=== PATIENT | female | born 1940 ===

== ENCOUNTER → 2017-03-21 | Outpatient (CLI) | payer MEDICARE, OTHER ==
[~2017-03-21] MED LIST: "\\\"PREP SPRAY\\\"-TIN4 OZ"; BENADRYL25 MG PO; BETAPACE (GENER80 MG PO; CALCIUM 1,0001 EACH PO; CATAPRES0.3 MG PO; CELEXA20 MG PO; COLACE100 MG PO; CORDARONE,PACE200 MG PO; COUMADIN ** IA5 MG PO; COUMADIN **IA2.5 MG PO; DULCOLAX10 MG R; FLORASTOR250 MG PO; FOSAMAX70 MG PO; HUMIBID LA (MU600 MG PO; KEPPRA500 MG PO; LEVAQUIN500 MG PO; LEXAPRO20 MG PO; LOPRESSOR25 MG PO; LOTENSIN40 MG PO; LOVENOX 6060 MG/0.6 SUB-Q; MILK OF MA400 MG/5 M PO; NORCO 5-325 TA1 EACH PO; NORVASC5 MG PO; NYSTATIN100000 UNI PO; PROAIR RESPICL90 MCG INH; SURFAK240 MG PO; THERA-VITE W/ B1 TAB PO; TYLENOL EXTRA500 MG PO; ZITHROMAX250 MG PO
== END ==
LOC: LCNC 16:12
DX: R53.82 Chronic fatigue, unspecified (principal)

== ENCOUNTER 2017-06-06 18:40 | Inpatient (IN) | payer MEDICARE, OTHER ==
[~2017-06-06] VITALS: Ht 157.5 cm; Wt 58.6 kg
--- NOTE | ~2017-06-06 | CON ---
PATIENT'S NAME: JUNG LINARES [facility] AGE: 77 Y [address] ROOM: [address] [place], [place] [address] LOCATION: G3N ADMIT DATE: 06/06/2017 Consultation DISCHARGE DATE: FAMILY PHYSICIAN: PHYSICIAN, UNKNOWN ATTENDING PHYSICIAN: LAMBERTO AVENDAÑO V REFERRING PHYSICIAN: SHELLIE RAYO MD HISTORY OF PRESENT ILLNESS: Ms. Linares is a 77-year-old elderly frail female with advanced dementia, who fell at home (day before yesterday) and sustained a right proximal femur fracture. History is obtained via the patient's (who is her primary caregiver) due to the fact that the patient has advanced dementia and is, therefore, not capable of providing history of any sort. At baseline, the patient has never complained of right hip pain. The patient is well known to me based upon the fact that I replaced both of her knees several years ago. I also provided followup care after she underwent open reduction and internal fixation of a left hip fracture in [place] year before last. She has had ongoing left hip pain subsequent to her left hip fracture treatment. The patient is nonambulatory (due to her dementia, frailty, left hip pain, and decreased strength). Her relates that she has been in a state of deteriorating health over the past year, where as they have previously spent wheat in [place], they did not do so this year. The patient's has been providing 24-hour care to the patient in their home residence. He assists her with virtually all transfers. She spends most of her day in bed or in a wheelchair. He states that she has been sleeping 12 to 14 hours per day. Day before yesterday, she stood up without assistance and attempted to transfer to her wheelchair and fell. She was unable to bear weight because of right hip pain. She denies pain elsewhere as a result of the incident. The patient's states that her appetite has been poor and that she has been manifesting increased lethargy and compromised strength over the past several months. He estimates that she has lost 10 pounds since [place]. He states that she has been in her baseline cognitive state subsequent to the injury. That is, there has been no deterioration in her mental status since the injury day before yesterday. MEDICATIONS: On admission; 1. Norvasc. 2. Lotensin. 3. Betapace. 4. Multivitamin. 5. Lexapro. PATIENT'S NAME: JUNG LINARES [facility] AGE: 77 Y [address] ROOM: [id number] [place], [place] [address] LOCATION: [facility] ADMIT DATE: 06/06/2017 Consultation DISCHARGE DATE: FAMILY PHYSICIAN: PHYSICIAN, UNKNOWN ATTENDING PHYSICIAN: LAMBERTO AVENDAÑO V 6. Catapres. 7. Lopressor. 8. Coumadin. 9. Benadryl. 10. Alendronate sodium. 11. Docusate calcium. 12. Benadryl. ALLERGIES: DILAUDID. PAST SURGICAL HISTORY: Bilateral total knee replacements, and open reduction and internal fixation of left hip. REVIEW OF HISTORY: No history of diabetes mellitus. Her states that she never complains of pain in either knee. She has a moderate amount of ongoing left hip pain. He places ice on her left hip every night. ACTIVE MEDICAL PROBLEMS: Atrial fibrillation, dementia, and osteopenia. PHYSICAL EXAMINATION: GENERAL: Frail, slender, elderly female, who is in no distress. VITAL SIGNS: Respiratory rate is 18 and nonlabored. NEUROLOGIC: She opens her eyes to command. She moves all 4 extremities to command. She is nonverbal in the preoperative holding area. MUSCULOSKELETAL: Left hip range of motion is severely limited and moderately painful. There is severe right hip pain with range of motion. There is tenderness at the right greater trochanter. There is a well-healed lateral scar at the left hip. There is no calf swelling or tenderness in either lower extremity. There are no active skin lesions over the right hip. There is no pain with gentle passive range of motion of both shoulders, both elbows, and both wrists. She is able to partially dorsiflex and plantarflex both ankles and both great toes against gravity, but she is noncooperative with more extensive strength testing of her legs. There is good capillary refill to all toes in the right foot. There is no swelling or tenderness at either knee. RADIOGRAPHS: AP pelvis as well as 2 oblique views of the right hip from June 06 demonstrate a gamma-nail construct at the left hip. There is moderate left hip joint space narrowing. There is a subtrochanteric fracture of the right hip. The proximal femoral shaft overlaps the trochanteric region, but this appears to be a subtrochanteric fracture. There is moderate superomedial PATIENT'S NAME: JUNG LINARES [facility] AGE: 77 Y [address] ROOM: [id number] [place], [place] [address] LOCATION: [facility] ADMIT DATE: 06/06/2017 Consultation DISCHARGE DATE: FAMILY PHYSICIAN: PHYSICIAN, UNKNOWN ATTENDING PHYSICIAN: LAMBERTO AVENDAÑO V joint space narrowing at both hips. IMPRESSION: Bilateral hip degenerative joint disease. Healed left proximal femur fracture with retained hardware, left proximal femur. Right hip subtrochanteric fracture. Osteopenia. Dementia. Baseline medical frailty with history of deteriorating physiologic status over the past year. PLAN: I have discussed the etiology and natural history of this condition. I have discussed operative and nonoperative options. I have recommended open reduction and internal fixation with an intramedullary device. I have explained to the patient's and daughter that she could conceivably have a more complex fracture of the proximal femur that was not evident on the plain radiographs (due to the fact that the patient was not comfortable enough to obtain optimal projections). Our plan will be to proceed with open reduction and internal fixation. I have reviewed technical aspects of surgery as well as risks and limitations thereof as well as potential adverse sequelae of the injury itself. I have specifically discussed the potential for infection, deep venous thrombosis, pulmonary embolism, mortality, malunion, nonunion, neurovascular complications, and blood transfusion risks. I have emphasized (and the patient's and daughter acknowledge) that her baseline compromised physical and cognitive status are likely to be challenged by this lesion and this carries a compromised prognosis. However, they wish to do everything possible to keep the patient as comfortable as possible. This would include stabilization of her fracture, so that she can be mobilized. All their questions and concerns have been answered to their satisfaction. Coumadin has been held since admission and she has been medically cleared to proceed with surgery today. Coumadin will be reinitiated in the recovery room and this will serve as DVT prophylaxis. MD VIDYA JIMENEZ/gaston PATIENT'S NAME: JUNG LINARES [facility] AGE: 77 Y [address] ROOM: [address] [address] LOCATION: [facility] ADMIT DATE: 06/06/2017 Consultation DISCHARGE DATE: FAMILY PHYSICIAN: PHYSICIAN, UNKNOWN ATTENDING PHYSICIAN: LAMBERTO AVENDAÑO V /[id number] d: 06/08/[id number] t: 06/11/17 1744, CONSULTATION REPORT
--- NOTE | ~2017-06-06 | HP ---
PATIENT'S NAME: JUNG LINARES [facility] AGE: 77 Y [address] ROOM: [address] [address] LOCATION: [facility] ADMIT DATE: 06/06/2017 History & Physical DISCHARGE DATE: FAMILY PHYSICIAN: PHYSICIAN, UNKNOWN ATTENDING PHYSICIAN: LAMBERTO AVENDAÑO V DATE OF SERVICE: CHIEF COMPLAINT: Mechanical fall/hip fracture. HISTORY OF PRESENT ILLNESS: The patient is a 77-year-old female, who has sustained a witnessed mechanical fall earlier today. Most of the history is provided by the patient's as she is quite sleepy from the opioids that she has received in the ER. Apparently, she got up and missed her wheelchair, fell, and at this point has a right hip fracture. Orthopedics is aware about the patient, and operative intervention is planned for 2 days from today. The patient does have a past medical history of atrial fibrillation, on sotalol and Coumadin. Her and her , however, deny any history of palpitations, chest pain, or shortness of breath. The does, however, endorse a recent history of complete lack of energy, apathy for daily activities as well as prolonged immobility, and sleeping for 12 hours a day. It is unclear if the patient has had a workup for this issue with her PCP. REVIEW OF SYSTEMS: All systems have been reviewed and are negative aside from pertinent positives mentioned in the HPI. PAST MEDICAL HISTORY: 1. Atrial fibrillation, on rhythm control, on anticoagulation. 2. Essential hypertension. 3. Bilateral knee arthroplasty. 4. Carries a history of depression. CURRENT MEDICATIONS: 1. Clonidine. 2. Sotalol. 3. Coumadin. 4. Citalopram. 5. Metoprolol. 6. Alendronate. 7. Multivitamin. PATIENT'S NAME: JUNG LINARES [facility] AGE: 77 Y [address] ROOM: [address] [address] LOCATION: [facility] ADMIT DATE: 06/06/2017 History & Physical DISCHARGE DATE: FAMILY PHYSICIAN: PHYSICIAN, UNKNOWN ATTENDING PHYSICIAN: LAMBERTO AVENDAÑO V SOCIAL HISTORY: Negative for any history of ongoing toxic habits. FAMILY HISTORY: Reviewed and noncontributory due to her advanced age. PHYSICAL EXAMINATION: VITAL SIGNS: Blood pressure 163/88, heart rate is 67, temperature 98.7, respirations of 14, saturating 99% on 2 L nasal cannula. GENERAL: Appears as an emancipated elderly female, quite sleepy, in no acute distress. NEUROLOGIC: Nonfocal. EYES: Show pupils are 2 mm and reactive to light. LYMPHATIC: Shows no cervical lymphadenopathy. ENDOCRINE: Shows no thyromegaly. LUNGS: Clear to auscultation. HEART: Rate is regular with 2/6 systolic murmur consistent with mitral regurgitation. GI: Abdomen is soft, nontender, nondistended. : No costovertebral angle tenderness. VASCULAR: 2+ pedal pulses. MUSCULOSKELETAL: Deferred. PSYCHIATRIC: Shows psychomotor retardation, likely related to opioids that the patient received in the ER. SKIN: Warm and dry. LABORATORY DATA: Review of the studies from the ER significant for INR of 2. Negative urinalysis. Unremarkable CBC and an unremarkable basic metabolic profile. EKG shows sinus rhythm in the 60s without any significant ST-T abnormalities, no QT prolongation. ASSESSMENT AND PLAN: This is a 77-year-old female with right hip fracture. Individual problems to be addressed as follows: 1. Preoperative optimization. Aside from correcting her INR, at this point, the patient does not require any further perioperative optimization. She is, however, at a risk for postoperative complications, just due to her poor nutritional status. We will check her prealbumin and request a Nutrition consult. Protein-calorie malnutrition is a possibility here. 2. Iatrogenic coagulopathy due to Coumadin. At this point, the surgery is not planned for another 36 hours to my understanding. We will monitor her INR tomorrow. We will hold off on her Coumadin. We will provide her vitamin K and/or FFP if needed. 3. Essential hypertension. This is adequately controlled, and we will PATIENT'S NAME: JUNG LINARES [facility] AGE: 77 Y [address] ROOM: [address] [address] LOCATION: [facility] ADMIT DATE: 06/06/2017 History & Physical DISCHARGE DATE: FAMILY PHYSICIAN: PHYSICIAN, UNKNOWN ATTENDING PHYSICIAN: LAMBERTO AVENDAÑO V continue benazepril and sotalol. 4. Depression. The patient is already on Celexa. We will check the TSH to make sure there is not a medical contribution to her psychiatric condition. 5. Pain control. The patient has adverse reaction to Dilaudid before, and we will discuss pain control with Orthopedics. 6. Deep venous thrombosis prophylaxis. At this point, the patient's INR is therapeutic and additional DVT prophylaxis is not indicated. 7. Additional management will depend on clinical course. Time dedicated to the patient's encounter is 35 minutes. MD ZACHARY OLIVARES/gaston /[id number] D: [id number] T: [id number] HISTORY & PHYSICAL
--- NOTE | ~2017-06-06 | ER ---
PATIENT'S NAME: JUNG LINARES [facility] AGE: 77 Y [address] ROOM: [place] [address] LOCATION: [facility] ADMIT DATE: 06/06/2017 ER/Outpatient Report DISCHARGE DATE: FAMILY PHYSICIAN: PHYSICIAN, UNKNOWN ATTENDING PHYSICIAN: LAMBERTO AVENDAÑO V CHIEF COMPLAINT: Right thigh pain. HISTORY OF PRESENT ILLNESS: Ms Linares was at home with her when she was transferring from her walker to her wheelchair when she collapsed and fell. The had been helping her, but turned to get the wheelchair, when she fell. It was not witnessed exactly, but does not appear as though she had any loss of consciousness or striking of her head. The was able to help her into bed, but she could not bear any weight on the leg. It is sharp pain. Pain is rated as severe. No interventions have been tried other than fentanyl by EMS. She did arrive by ambulance for further evaluation and treatment. History of left- sided hip fracture and bilateral knee replacements. Local physician is at the [facility]. PAST MEDICAL HISTORY: Documented on the record and reviewed by me. SOCIAL HISTORY: Documented on the record and reviewed by me. MEDICATIONS: Documented on the record and reviewed by me. ALLERGIES: DOCUMENTED ON THE RECORD AND REVIEWED BY ME. REVIEW OF SYSTEMS: All systems were reviewed and negative except as noted in the HPI. PHYSICAL EXAMINATION: VITAL SIGNS: Blood pressure 154/97, pulse 58, respiratory rate 16, temperature 96.3, SpO2 is 91% on room air. Pain is rated 4/10. GENERAL: Age-appropriate female, in obvious pain. No respiratory distress, recumbent on the exam table. NEUROLOGIC: Awake and alert. GCS is 14. Slightly confused on date. No abnormalities or asymmetry on exam. HEENT: Normocephalic, atraumatic. Eyes are PERRL. Oropharynx is clear. NECK: Supple. Trachea is midline. PATIENT'S NAME: JUNG LINARES [facility] AGE: 77 Y [address] ROOM: [address] [address] LOCATION: [facility] ADMIT DATE: 06/06/2017 ER/Outpatient Report DISCHARGE DATE: FAMILY PHYSICIAN: PHYSICIAN, UNKNOWN ATTENDING PHYSICIAN: LAMBERTO AVENDAÑO V CHEST: Heart is regular rate and rhythm with no murmurs. LUNGS: Clear to auscultation bilaterally with no rhonchi, wheezes, or rales. ABDOMEN: Soft, nontender, and nondistended. No rebound or guarding. BACK: Normal to inspection and palpation. EXTREMITIES: Tenderness at the right hip region. The hip is externally rotated and shortened. The other extremities are unremarkable. All extremities are neurovascularly intact otherwise. SKIN: Appears to be grossly intact. LABORATORY DATA AND X-RAYS: Plain film of the pelvis reveals a subtrochanteric fracture without evidence of involvement of the femoral neck. CMS is notable for no significant abnormalities. CBC with no appreciable abnormalities. INR is 2.0. Urinalysis with no evidence of infection. EKG with marked baseline artifact, appears to be sinus rhythm, with otherwise normal intervals and axis. CT of the head and C-spine were unremarkable per Radiology. IMPRESSION: Right-sided hip fracture, status post fall. EMERGENCY DEPARTMENT COURSE: The patient was seen and evaluated as above. She was given fentanyl for pain management. Plain films as above. The etiology of fall appears to be mechanical in nature or spontaneous fracture. The patient is allergic to hydromorphone and thus she was not given that in the emergency department. I discussed the case with Dr. Robb, orthopedic surgeon, of the patient's choice and he has agreed to evaluate the patient for further evaluation in the hospital. We will admit to hospitalist for the patient's other medical comorbidities and age for symptom management. All questions were answered and the patient was admitted in stable condition. MD BAKARI QUEEN/gaston /[id number] d: 06/07/17608 t: 06/10/17 1234, OUTPATIENT REPORT
--- NOTE | ~2017-06-06 | CON ---
PATIENT'S NAME: JUNG LINARES [facility] AGE: 77 Y [address] ROOM: [id number] [place], [place] [address] LOCATION: [facility] ADMIT DATE: 06/06/2017 Consultation DISCHARGE DATE: FAMILY PHYSICIAN: PHYSICIAN, UNKNOWN ATTENDING PHYSICIAN: LAMBERTO AVENDAÑO V REFERRING PHYSICIAN: SHELLIE RAYO MD REFERRING PHYSICIAN: Lamberto Avendaño MD REASON FOR CONSULT: Paroxysmal atrial fibrillation. HISTORY OF PRESENT ILLNESS: This is a very pleasant, 77-year-old female, well known to Dr. Forbes with history of paroxysmal atrial fibrillation on long-term anticoagulation and high-risk medications. She also has essential hypertension and nocturnal hypoxia as well as aortic valve sclerosis. She has a history of basal ganglia and thalamic lacunar infarct per CT 01/02/2016 as well with history of DVT. On 06/06/2017, she was admitted after a fall where she sustained right hip fracture. She was standing with her walker, getting ready to sit in a wheelchair and had a fall that was unwitnessed. She does not recall if she felt lightheaded or dizzy. She has not had complaints of lightheadedness or dizziness recently. There has been no report of exertional chest pain or shortness of breath. No orthopnea, PND, or pedal edema. On admission, her EKG showed that she was in a regular sinus rhythm. On 06/08/2017, she underwent an open reduction internal fixation of the right hip with intertrochanteric fracture with IM gamma nail placed. She is nonweightbearing. Yesterday around 02:30 p.m. she was found to be hypotensive with heart rates that were tachycardic in the 160 to 170 range. Her hemoglobin was also a little low at that time, at 7.5. She received digoxin and was transferred to PCU. She eventually cardioverted spontaneously to a normal sinus rhythm at 2100 hours. She has not had any profound bradycardia. She was off the sotalol for a while during this hospitalization. PAST MEDICAL HISTORY: 1. Paroxysmal atrial fibrillation. 2. Long-term anticoagulation - Warfarin. 3. High-risk medications - Sotalol. 4. Essential hypertension. 5. Nocturnal hypoxia. O2 2 L at bedtime. 6. Aortic valve sclerosis. 7. 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 8. History of DVT. 9. History of depression. 10. Osteoarthritis and degenerative joint disease. PATIENT'S NAME: JUNG LINARES [facility] AGE: 77 Y [address] ROOM: [id number] [place], [place] [address] LOCATION: [facility] ADMIT DATE: 06/06/2017 Consultation DISCHARGE DATE: FAMILY PHYSICIAN: PHYSICIAN, UNKNOWN ATTENDING PHYSICIAN: LAMBERTO AVENDAÑO V 11. Dementia. 12. Macular degeneration. PAST SURGICAL HISTORY: 1. Appendectomy. 2. Hysterectomy with oophorectomy in 1989. 3. Bilateral cataract removal. 4. Vein stripping bilateral 2005. 5. Macular surgery bilateral 2005. 6. Right total knee replacement 03/15/2013. 7. Left total knee replacement 2013. 8. IM nailing of the left hip [facility], [place] 01/03/2016. 9. IM nailing of the right hip 06/08/2017. ALLERGIES: DARVON, HYDROCORTISONE, KEFLEX, AND CEFTIN. CURRENT MEDICATIONS: 1. Catapres 0.1, 5 mg at bedtime. 2. Colace 100 mg t.i.d. 3. Coumadin 5 mg daily. 4. Lexapro 20 mg daily. 5. Lopressor 25 mg b.i.d. 6. Norvasc 5 mg p.o. every day. 7. Pepcid 20 mg daily. 8. Senokot 1 tablet 3 of them daily at bedtime. 9. Theravite with beta-carotene 1 tablet p.o. every day. FAMILY HISTORY: Father at 80 years old with heart murmur. Mother is at 92. She had hypertension. She has a brother and a sister as well as an older sister who has heart problems. She had a daughter with breast cancer. SOCIAL HISTORY: She is a lifelong nonsmoker. She does live with her . She has 3 children, 2 girls and a boy. REVIEW OF SYSTEMS: HEAD: No problems with headache. No vision changes. EYES: No blurred vision. NOSE: No epistaxis or rhinorrhea. MOUTH: No gingival bleeding. PULMONARY: Denies cough or hemoptysis. GI: Negative for nausea, vomiting, or diarrhea. No melena or hematochezia. PATIENT'S NAME: JUNG LINARES [facility] AGE: 77 Y [address] ROOM: [address] [place], [place] [address] LOC[facility]: [facility] ADMIT DATE: 06/06/2017 Consultation DISCHARGE DATE: FAMILY PHYSICIAN: PHYSICIAN, UNKNOWN ATTENDING PHYSICIAN: LAMBERTO AVENDAÑO V GENITOURINARY: Negative for urinary frequency or urgency. No urinary tract infections. ENDOCRINE: No history of hyper or hypothyroidism or diabetes mellitus. HEMATOLOGIC: Negative for leukemia or cancer. Currently, she is anemic post surgery. MUSCULOSKELETAL: She is post hip, both now left and right hip fracture. PHYSICAL EXAMINATION: VITAL SIGNS: Her blood pressure today is 140/70, heart rates in the 70s. She is afebrile. SKIN: Warm, dry, and pink. GENERAL: She denies complaints of discomfort. HEENT: Pupils were equal. LUNG: Sounds were clear. CVS: Now regular with a normal S1 and S2, with a systolic ejection murmur heard best at the 2nd intercostal space consistent with aortic sclerosis. ABDOMEN: Soft. Bowel sounds are present. EXTREMITIES: Right hip dressing is dry and intact. EXTREMITIES: No peripheral edema. Distal pulses are 2+/4. ASSESSMENT: 1. Paroxysmal atrial fibrillation. We are going to discontinue the sotalol and start her on amiodarone infusion. We will check a TSH and we will make sure she has had an echocardiogram for further evaluation. 2. Long-term anticoagulation. Her INR today is 2.25. She will continue with her warfarin therapy. 3. Aortic valve sclerosis. This is stable. 4. Nocturnal hypoxia. She needs to continue to wear oxygen at bedtime. The assessment and plan, history of present illness, and physical exam are per Dr. Forbes. Further recommendations will be forthcoming as information becomes available. AMARIS JASSO APRN FOR MD DELTA YARBROUGHP/heatherl /[id number] d: 06/10/172008 t: 08/01/17 1002, CONSULTATION REPORT
--- NOTE | ~2017-06-06 | OR ---
PATIENT'S NAME: JUNG LINARES [facility] AGE: 77 Y [address] ROOM: [place] [id number] LOCATION: [facility] ADMIT DATE: 06/06/2017 OR/Procedure Report DISCHARGE DATE: FAMILY PHYSICIAN: PHYSICIAN, UNKNOWN ATTENDING PHYSICIAN: LAMBERTO AVENDAÑO V SURGEON: Shravan Robb MD FILM RENTAL CLERK: DATE OF PROCEDURE: 06/08/2017 PREOPERATIVE DIAGNOSIS: Intertrochanteric fracture, right hip. POSTOPERATIVE DIAGNOSIS: Intertrochanteric fracture, right hip. PROCEDURE PERFORMED: Open reduction and internal fixation of right hip intertrochanteric fracture with intramedullary device (gamma nail). ANESTHESIA: Spinal. ESTIMATED BLOOD LOSS: Less than 100 cubic centimeters. IMPLANTS: Synthes 125-degree 11 mm trochanteric femoral nail with 32 mm distal interlocking screw and proximal lag screw. DRAINS: None SPECIMEN: None COMPLICATIONS: None. INDICATION FOR PROCEDURE: Please refer to my separately dictated consultation note. The patient presents with a right hip intertrochanteric fracture. Operative and nonoperative options have been reviewed. Potential adverse sequelae of the injury itself have been reviewed. Risks, benefits, limitations, and indications for surgery have been thoroughly reviewed and informed consent has been granted. We have specifically reviewed risks and implications of the following: infection, malunion, nonunion, deep venous thrombosis, pulmonary embolism, mortality, neurovascular complications, blood transfusion risks, decubitus ulcer formation, pneumonia, avascular necrosis, and the potential need for further surgery (including the potential need for salvage with hip hemiarthroplasty versus total hip arthroplasty). We have discussed the necessity for 2 months of restricted weightbearing postoperatively. A preoperative internal medicine consultation has been obtained, and the patient has been medically cleared for surgery. DESCRIPTION OF PROCEDURE: The patient was positioned supine on the fracture PATIENT'S NAME: JUNG LINARES [facility] AGE: 77 Y [address] ROOM: [address] [address] LOCATION: [facility] ADMIT DATE: 06/06/2017 OR/Procedure Report DISCHARGE DATE: FAMILY PHYSICIAN: PHYSICIAN, UNKNOWN ATTENDING PHYSICIAN: LAMBERTO AVENDAÑO V table after administration of anesthesia and prophylactic antibiotics. The correct side and anticipated procedure were confirmed via a verbal timeout including myself, the bar helper, and the circulating nurse. A well-padded groin post was placed. Both feet and ankles were well padded. The left foot was placed into a stirrup-type leg phan. The right foot was placed into a traction boot. Under fluoroscopic guidance, gentle longitudinal traction and internal rotation were applied across the fracture site through the right foot until a suitable reduction had been confirmed under AP and lateral fluoroscopic imaging. The lateral aspect of the right hip and thigh were scrubbed, prepped, and draped with vigilant sterile technique. The tip of the right greater trochanter was approached through a 5 cm direct lateral longitudinal incision. The iliotibial band was sharply divided longitudinally in line with the overlying skin incision. The tip of the right greater trochanter was palpated, and a cannulated awl was utilized to access the intramedullary canal of the proximal femur through the tip of the right greater trochanter. A ball tipped guidewire was placed through the awl and across the fracture site under fluoroscopic guidance, and the awl was subsequently removed. The cannulated entrance reamer was utilized through the appropriate soft tissue guide. The gamma nail was seated to the appropriate depth over the guidewire, and the guidewire was extracted. Fluoroscopic imaging confirmed appropriate position of the gamma nail. The outrigger guide and guide cannula were subsequently utilized to place a threaded-tipped guidewire centrally within the right femoral head and neck through a separate direct lateral 2 cm longitudinal incision. Appropriate position of the guidewire was confirmed under AP and lateral fluoroscopic imaging. Appropriate depth for the lag screw was measured. The cannulated reamer was set to the appropriate depth and fully seated through the appropriate soft tissue guide. The lag screw was seated to the appropriate depth under AP and lateral fluoroscopic guidance. The anti-rotational set screw was deployed. The outrigger guide and cannula were subsequently utilized to place the distal interlocking screw through a separate 5 mm direct lateral longitudinal incision. AP, lateral, and oblique fluoroscopic imaging of the right hip and right proximal femur confirmed appropriate position of all hardware and maintenance of an appropriate reduction of the fracture. Each of the 3 incisions was thoroughly irrigated with bacteriostatic saline lavage. The fascia was closed with simple deep interrupted 0 Vicryl sutures. PATIENT'S NAME: JUNG LINARES [facility] AGE: 77 Y [address] ROOM: [address] [address] LOCATION: [facility] ADMIT DATE: 06/06/2017 OR/Procedure Report DISCHARGE DATE: FAMILY PHYSICIAN: PHYSICIAN, UNKNOWN ATTENDING PHYSICIAN: LAMBERTO AVENDAÑO V Each of the incisions was closed with superficial buried interrupted 2-0 Vicryl sutures and surgical noé. The dressings consisted of Xeroform gauze, sterile gauze, and occlusive tape. There were no complications. The patient was carefully transferred off the fracture table and transported to the postanesthesia care unit in stable condition. MD VIDYA JIMENEZ/gaston /[id number] d: 06/09/17 0027 t: 06/11/17 1746, OPERATIVE SUMMARY
--- NOTE | ~2017-06-06 | ECHO ---
Transthoracic Echocardiography Report (TTE) Demographics Patient Name JUNG LINARES Date of Study 06/09/2017 Patient Number [id number] Visit Number [id number] Date of 1940 Room Number G3305 Accession Number [id number] Gender Female Age 77 year(s) Referring Sunil Hernandez MD Major Donor Coordinator Makenzie Johnson Physician Luzma Quiroz RVT, MD Physician Interpreting Andrei Alfaro MD Licensed Pesticide Applicator Physician Supervising Ordering Physician Sunil Hernandez MD/LORENA LUCIANO Nurse Stress Fortune Cookie Maker Conclusions Contractility Score Summary Normal Left Ventricular contractility was noted. Summary The estimated left ventricular ejection fraction is 65-70%. Moderate to severe concentric left ventricular hypertrophy. Diastolic assessment reveals Grade I diastolic dysfunction. The left atrium is moderately dilated by LA volume index measurement. Mild mitral annular calcification. Mild mitral regurgitation by color Doppler. The aortic valve is mildly sclerotic. Moderate tricuspid regurgitation by color Doppler. There is severe pulmonary hypertension. The pulmonary pressure (RVSP) is 76 mmHg. Trivial pulmonic valve regurgitation by color Doppler. Trivial pericardial effusion measuring .71cm. The ascending aorta appears mildly dilated. The maximum diameter measures 3.6 cm. Procedure Type of Study TTE procedure:2D Echocardiogram. Procedure Date Date: 06/09/2017 Start: 03:35 PM Study Location: Inpatient Portable Technical Quality: Adequate visualization Indications:Heart Murmur. Appropriate Use Criteria: 9 Patient Status: Routine HR: 82 bpm M-Mode/2D Measurements LV Diastolic Dimension: 3.72 cm LV Systolic Dimension: 2.14 cm LV Septum Diastolic: 1.86 cm LV PW Diastolic: 1.64 cm AO Root Dimension: 2.7 cm Cardiac Output: 4.79 l/min AV Cusp Separation: 1.5 cm LA volume: 60 ml RV Base: 2.13 cm LVOT: 2 cm RV Mid: 2.61 cm LVOT VTI: 18.6 cm RV Length: 5.92 cm LV Stroke volume: 58.4 ml TDI-S': 18.3 cm/s Doppler Measurements AV Peak Velocity: 2.45 m/s MV Peak E-Wave: 0.7 m/s AV Peak Gradient: 24.01 mmHg MV Peak A-Wave: 0.83 m/s AV Mean Gradient: 10 mmHg MV E/A Ratio: 0.84 LVOT Peak Velocity: 1.11 m/s MV P1/2t: 94 msec TR Gradient:65.61 mmHg PV Peak Velocity: 1.18 m/s Estimated RAP:10 mmHg PV Peak Gradient: 5.57 mmHg Estimated RVSP: 76 mmHg Estimated PASP: 75.61 mmHg E' Septal Velocity: 0.06 m/s A' Septal Velocity: 0.14 m/s E' Lateral Velocity: 0.05 m/s A' Lateral Velocity: 0.13 m/s Findings Left Ventricle Moderate to severe concentric left ventricular hypertrophy. Diastolic assessment reveals Grade I diastolic dysfunction. Right Ventricle Normal right ventricle structure and function. Left Atrium Normal left atrial size. Right Atrium IVC measures 1.26 cm with inspiratory collapse. Mitral Valve Mild mitral annular calcification. Mild mitral regurgitation by color Doppler. Aortic Valve The aortic valve is mildly sclerotic. Tricuspid Valve Moderate-severe tricuspid regurgitation by color Doppler. There is severe pulmonary hypertension. The pulmonary pressure (RVSP) is 76 mmHg. Pulmonic Valve Trivial pulmonic valve regurgitation by color Doppler. Pericardial Effusion Trivial pericardial effusion measuring .71cm. Miscellaneous The ascending aorta appears mildly dilated. The maximum diameter measures 3.6 cm. Pleural Effusion No evidence of pleural effusion. Contractility Score LV regional wall motion:(0-Non visualized 1-Normal 2-Hypokinesis 3-Akinesis 4-Dyskinesis 5-Aneurysm) Signature dtt: Dominic Forbes (cardio) dtd: 06/09/17 6205 Physician Self Edit
--- NOTE | ~2017-06-06 | DS ---
PATIENT'S NAME: JUNG LINARES [facility] AGE: 77 Y [address] ROOM: [address] [place], [place] [address] LOCATION: G3N ADMIT DATE: 06/06/2017 Discharge Summary DISCHARGE DATE: 06/13/2017 FAMILY PHYSICIAN: Physician, Unknown ATTENDING PHYSICIAN: Avi Segal V PRINCIPAL DIAGNOSES: 1. Right hip intertrochanteric fracture status post open reduction internal fixation. 2. Atrial fibrillation with rapid ventricular response. 3. Chronic constipation. 4. Acute blood loss anemia. 5. Essential hypertension. 6. Subtherapeutic INR. 7. Protein calorie malnutrition. 8. Depression. 9. Dementia. HOSPITAL COURSE: Please reference any of the admitting data to the history and physical as dictated by . Briefly, a 77-year-old female who sustained a witnessed medical mechanical fall and was found to have a right hip fracture, admitted under the hospitalist orthopedic consultation. She was initially placed in Echols's traction. She was given IV analgesia. She was preoperatively evaluated and taken to Surgery on 06/08/2017 where an open reduction and internal fixation of the right hip intertrochanteric fracture with an intramedullary nailing was completed. She was noted to have preoperative Ancef and postoperative Ancef for three doses. She was made toe-touch weightbearing with physical and occupational therapy for restorative purposes. She got a Coumadin loaded in the PACU and resume daily dosing starting next day. She then was found to have a supratherapeutic INR of greater than 4. She was given a dose of vitamin K. Her Coumadin was stopped. Her hemoglobin did drop from 9.1, 8.4, and 7.5, respectively. She was given 1 unit of blood. She was given normal saline bolus for some hypotension. She then went into atrial fibrillation with rapid ventricular response. The patient was transitioned to progressive care unit and placed on Cardizem drip for rate control. Dr. Mini Forbes's consultation with Cardiology was obtained. Sotalol was stopped and then she was placed on amiodarone drip per protocol and then transitioned to oral and she did convert to normal sinus rhythm. She was observed on tele without any further complications. Her hemoglobin did trend upwards after the transfusion and she became normotensive once her rates were controlled. She was then started on therapeutic Lovenox on 06/10/2017 without any bleeding complications and stable hemoglobin. She was given Coumadin at the same time and INR trended up to 1.34 on day of discharge. We will continue Lovenox PATIENT'S NAME: JUNG LINARES [facility] AGE: 77 Y [address] ROOM: [place] [address] LOCATION: [facility] ADMIT DATE: 06/06/2017 Discharge Summary DISCHARGE DATE: 06/13/2017 FAMILY PHYSICIAN: Physician, Unknown ATTENDING PHYSICIAN: Avi Segal V therapy until INR is greater than or equal to 2.0. Goal for therapy is INR of 2.0 to 3.0. She was then transferred to [address] [place] [address] on 06/11/2017 without any complication. Care management arranged for discharge. On the day of discharge. Dr. Chaidez, Internal Medicine, witnessed an episode of petit mall which she felt was petit mal seizure. Stat EEG was obtained and neurologic consultation was sought. She was given Keppra 1 dosing after EEG was obtained. Official read was read background slowing showing evidence of mild diffuse encephalopathy, but no epileptic discharges or EEG seizures. She was felt stable for discharge because of this with adequate surveillance with Neurology as an outpatient. CONSULTATIONS: 1. Orthopedics, Shravan Robb MD. 2. Teleneurology services, Misti Porter APRN. 3. Dominic Forbes MD, Cardiology. PROCEDURES: 1. ORIF of right hip intertrochanteric fracture with intramedullary device on 06/08/2017. 2. Radiologic imagings: Initial chest x-ray showed cardiomegaly without evidence of failure and aortic ectasia. CT of the brain showed no acute findings. CT of the cervical spine showed no acute findings. A right hip x-ray showed right hip fracture. Postoperative films showed proper alignment of reduction and fixation of the fracture with metallic hardware. LABORATORY FINDINGS: Pertinent positives as described above. INR on discharge was 1.34. Urinalysis was negative for any infection. Her prealbumin was 19, TSH was within normal limits. Most recent CBC shows a white blood count of 9.5, hemoglobin of 9.3, this is up from 7.5 postoperatively and after 1 unit of blood., hematocrit of 26.9 and platelet count of 281. Most recent chemistry panel showed a glucose of 96, BUN of 10, creatinine 0.6, sodium 142, potassium 4.4, chloride of 109, CO2 of 27, calcium 8.3, and magnesium 1.9. DISCHARGE MEDICATIONS: 1. Benazepril 20 mg p.o. twice daily. Hold for systolic blood pressure less than 120. 2. Stop sotalol per Cardiology. 3. Amiodarone 200 mg p.o. twice daily until followup with Cardiology. 4. Amlodipine 5 mg p.o. every day. 5. Clonidine 0.15 mg p.o. every night at bedtime. 6. Colace 100 mg p.o. 3 times daily. 7. Lovenox 60 mg subcutaneous twice daily until INR is greater than or equal PATIENT'S NAME: JUNG LINARES [facility] AGE: 77 Y [address] ROOM: [place] [address] LOCATION: [facility] ADMIT DATE: 06/06/2017 Discharge Summary DISCHARGE DATE: 06/13/2017 FAMILY PHYSICIAN: Physician, Unknown ATTENDING PHYSICIAN: Avi Segal V to 2.0. 8. Lexapro 20 mg p.o. every morning. 9. Lopressor 25 mg p.o. twice daily. 10. Multivitamin 1 tablet p.o. every day. 11. Coumadin 7.5 mg p.o. every other day alternating with 5 mg p.o. every other day. INR goal is 2.0 to 3.0. 12. Tylenol 500 to 1000 mg p.o. every 6 hours as needed for pain. 13. [place] 5/325 mg 1 tablet every 4 hours as needed. Prescription written. 14. Dulcolax 10 mg per rectum as needed for constipation. 15. Benadryl 25 mg p.o. every 6 hours as needed. 16. Docusate calcium 240 mg p.o. every day as needed for constipation. 17. Calcium with vitamin D 2 tablets p.o. every day. 18. Fosamax 70 mg p.o. every 7 days. 19. Keppra 500 mg 1 tablet p.o. twice daily. DISCHARGE INSTRUCTIONS: The patient will be discharged to [facility] under the care of her primary care doctor. She will need to follow up with Dr. Shravan Robb in 1 week regarding her hip. She should remain toe-touch weightbearing to the right lower extremity with Physical and Occupational Therapy to evaluate and treat the patient appropriately, dressing to the right hip area is the Mepilex dressing to be left in place at all times. The patient is okay to shower over this dressing. If there are questions, concerns or the dressing is saturated or becomes removed, all questions to be directed toward the orthopedic group. The patient should also follow up with Dr. Forbes in 2 weeks with Cardiology and a followup with the Neurology Clinic next week with Airam Porter APRN. Laboratory, she should have a PT and INR drawn on a daily basis and fax to her PCP with recommendations for the PCP to titrate Coumadin to goal therapy of INR of 2.0 to 3.0, and to stop Lovenox when INR is greater than or equal to 2.0. The patient is do not resuscitate, do not intubate upon discharge. Diet as tolerated. The patient and family are well aware of condition and prognosis. The above line of management was discussed with the patient and her spouse as her power of assistant attorney general. He states complete understanding of the above aforementioned plan. All questions were answered with statements of satisfaction. Total time in discharge process was 40 minutes. Thank you for allowing us to participate in the care of this patient while at [facility]. PATIENT'S NAME: JUNG LINARES [facility] AGE: 77 Y [address] ROOM: [place] [address] LOCATION: [facility] ADMIT DATE: 06/06/2017 Discharge Summary DISCHARGE DATE: 06/13/2017 FAMILY PHYSICIAN: Physician, Unknown ATTENDING PHYSICIAN: Avi Segal APRN, APRN FOR MD JAZMINE WILLIAM/gaston /[id number] CC: MD Dominic Toledo MD Jessica Hatch, MD d: 06/14/17 1622 t: 06/18/17 1934, DISCHARGE SUMMARY
--- NOTE | ~2017-06-06 | NDGEN ---
PATIENT'S NAME: JUNG LINARES [facility] AGE: 77 Y [address] ROOM: [address] [address] LOCATION: [facility] ADMIT DATE: 06/06/2017 Neurodiagnostics DISCHARGE DATE: 06/13/2017 FAMILY PHYSICIAN: Physician, Unknown ATTENDING PHYSICIAN: Avi Segal V PROCEDURE: ELECTROENCEPHALOGRAM DATE OF PROCEDURE: 06/13/2017 TEST: TECH: CLINICAL DIAGNOSIS: DURATION OF EE minutes. REASON FOR EEG: Syncope and unresponsiveness. CLINICAL HISTORY: The patient is a 77-year-old female who sustained a witnessed mechanical fall. The patient does have history of atrial fibrillation, on Coumadin. The endorses recent history of complete lack of energy where she has been sleeping for up to 12 hours a day. EEG FINDINGS: The patient is awake for about 10% to 20% of the EEG and asleep for most of the EEG. During the awake portions of EEG, a background of about 7 to 8 hertz is seen in the posterior head regions. During the sleep phase, vertex waves were seen in central head regions. Activation procedures included photic stimulation between 3 to 30 hertz, which did not show any abnormalities. CLASSIFICATION: Abnormal 1, awake, asleep 10/20 scalp electrodes. 1. Background slow. IMPRESSION: This EEG shows evidence of a mild diffuse encephalopathy. No epileptiform discharges or EEG seizures were seen during this recording. MD RIC CAREY/modriley /[id number] dtt: 06/18/17 0633 ONEL RAM MOHAN R. dtd: 06/13/17 1742
[~2017-06-06 18:40] MED LIST changes: -"\\\"PREP SPRAY\\\"-TIN4 OZ"; -BENADRYL25 MG PO; -CALCIUM 1,0001 EACH PO; -COLACE100 MG PO; -CORDARONE,PACE200 MG PO; -DULCOLAX10 MG R; -KEPPRA500 MG PO; -LEXAPRO20 MG PO; -LOVENOX 6060 MG/0.6 SUB-Q; -MILK OF MA400 MG/5 M PO; -NORCO 5-325 TA1 EACH PO; -NYSTATIN100000 UNI PO; -SURFAK240 MG PO; -TYLENOL EXTRA500 MG PO
[2017-06-06 19:36] LABS: BASOPHIL # 0.1 K/uL (0.0-0.2); BASOPHIL % 0.8 %; EOSINOPHIL # 0.2 K/uL (0.0-0.5); EOSINOPHIL % 2.8 %; HEMATOCRIT 40.1 % (33.0-46.0); HEMOGLOBIN 13.4 g/dL (10.0-15.0); IMMATURE GRANULOCYTE % 0.5 %; LYMPHOCYTE # 2.1 K/uL (0.8-4.0); LYMPHOCYTE % 32.8 %; MCH 32.3 pg (27.0-34.0); MCHC 33.4 gm/dL (32.0-36.5); MCV 96.6 fl (83.0-98.0); MONOCYTE # 0.5 K/uL (0.0-1.0); MONOCYTE % 7.6 %; NEUTROPHIL # (ANC) 3.6 K/uL (1.8-7.8); NEUTROPHIL % 55.5 %; NRBC % 0 /100WBC (0-0.00); PLATELET COUNT 270 K/uL (150-450); RBC 4.15 M/uL (3.50-5.50); RDW-CV 13.3 % (11.9-14.6); WBC 6.4 K/uL (4.0-11.0)
[2017-06-06 19:47] LABS: INR - (THERAPEUTIC) 2.01 (0.92-1.07); PROTIME 21.3 SECONDS (9.8-11.4); PTT 32 SECONDS (25-32)
[2017-06-06 19:54] LABS: ALBUMIN 3.6 gm/dL (3.5-5.0); ANION GAP 7.9 (10.0-19.0); CALCIUM 8.9 mg/dL (8.5-10.5); CREATININE 0.8 mg/dL (0.5-1.1); POTASSIUM 3.9 mMol/L (3.7-5.1); TOTAL BILIRUBIN 0.3 mg/dL (0.0-1.5)
[2017-06-06 20:02] LABS: BILIRUBIN URINE NEGATIVE (NEGATIVE); BLOOD URINE NEGATIVE /UL (NEGATIVE); COLOR URINE YELLOW (YELLOW); GLUCOSE URINE NEGATIVE (NEGATIVE); KETONE URINE NEGATIVE (NEGATIVE); LEUKOCYTES URINE NEGATIVE /UL (NEGATIVE); NITRITE URINE NEGATIVE (NEGATIVE); PROTEIN URINE NEGATIVE (NEGATIVE); SPEC GRAVITY URINE 1.015 (1.003-1.035); TURBIDITY URINE CLEAR (CLEAR); UROBILINOGEN URINE NORMAL (NORMAL)
[2017-06-06] MEDS ORDERED: LEXAPRO20 MG PO (22:21)
[2017-06-06] MEDS ORDERED: CATAPRES0.3 MG PO (22:22)
[2017-06-06] MEDS ORDERED: COUMADIN ** IA5 MG PO (22:23)
[2017-06-06] MEDS ORDERED: LOPRESSOR25 MG PO (22:23)
[2017-06-06] MEDS ORDERED: BENADRYL25 MG PO (22:27)
[2017-06-06] MEDS ORDERED: CALCIUM 1,0001 EACH PO (22:29)
[2017-06-06] MEDS ORDERED: "\\\"PREP SPRAY\\\"-TIN4 OZ" (22:30)
[2017-06-06] MEDS ORDERED: FOSAMAX70 MG PO (22:30)
[2017-06-07] MEDS ORDERED: SURFAK240 MG PO (10:09)
[2017-06-07 18:24] LABS: BASOPHIL % 0.2 %; EOSINOPHIL % 0.1 %; HEMOGLOBIN 11.5 g/dL (10.0-15.0); IMMATURE GRANULOCYTE % 0.2 %; LYMPHOCYTE # 1.5 K/uL (0.8-4.0); LYMPHOCYTE % 12.1 %; MCH 32.4 pg (27.0-34.0); MCHC 33.8 gm/dL (32.0-36.5); MCV 95.8 fl (83.0-98.0); MONOCYTE # 1.4 K/uL (0.0-1.0); MONOCYTE % 11.3 %; NEUTROPHIL # (ANC) 9.4 K/uL (1.8-7.8); NEUTROPHIL % 76.1 %; NRBC % 0 /100WBC (0-0.00); PLATELET COUNT 220 K/uL (150-450); RBC 3.55 M/uL (3.50-5.50); RDW-CV 13.3 % (11.9-14.6); WBC 12.4 K/uL (4.0-11.0)
[2017-06-07 18:32] LABS: PROTIME 25.4 SECONDS (9.8-11.4)
[2017-06-07 18:50] LABS: ANION GAP 9.9 (10.0-19.0); CALCIUM 8.8 mg/dL (8.5-10.5); POTASSIUM 3.9 mMol/L (3.7-5.1)
[2017-06-07 18:54] LABS: CREATININE 1.3 mg/dL (0.5-1.1)
[2017-06-09 04:33] LABS: HEMOGLOBIN 9.1 g/dL (10.0-15.0)
[2017-06-09 04:34] LABS: HEMATOCRIT 27.1 % (33.0-46.0)
[2017-06-09 04:42] LABS: INR - (THERAPEUTIC) 4.43 (0.92-1.07); PROTIME 47.2 SECONDS (9.8-11.4)
[2017-06-09 19:47] LABS: HEMATOCRIT 24.6 % (33.0-46.0); HEMOGLOBIN 8.4 g/dL (10.0-15.0)
[2017-06-09 23:55] LABS: HEMATOCRIT 22.4 % (33.0-46.0)
[2017-06-09 23:58] LABS: HEMOGLOBIN 7.5 g/dL (10.0-15.0)
[2017-06-10 07:44] LABS: HEMATOCRIT 26.4 % (33.0-46.0); HEMOGLOBIN 8.7 g/dL (10.0-15.0)
[2017-06-10 07:53] LABS: ALBUMIN 2.8 gm/dL (3.5-5.0); CALCIUM 8.1 mg/dL (8.5-10.5); CREATININE 0.9 mg/dL (0.5-1.1); INR - (THERAPEUTIC) 2.25 (0.92-1.07); MAGNESIUM 2.1 mg/dL (1.8-2.6); POTASSIUM 3.9 mMol/L (3.7-5.1); PROTIME 23.8 SECONDS (9.8-11.4)
[2017-06-10 07:55] LABS: ANION GAP 9.9 (10.0-19.0); PHOSPHORUS 1.3 mg/dL (2.5-4.9)
[2017-06-10 14:58] LABS: INR - (THERAPEUTIC) 1.46 (0.92-1.07); PROTIME 15.4 SECONDS (9.8-11.4)
[2017-06-11 03:57] LABS: BASOPHIL % 0.5 %; EOSINOPHIL # 0.2 K/uL (0.0-0.5); EOSINOPHIL % 2.6 %; HEMATOCRIT 23.7 % (33.0-46.0); IMMATURE GRANULOCYTE % 0.5 %; LYMPHOCYTE % 23.2 %; MCHC 33.8 gm/dL (32.0-36.5); MONOCYTE # 0.9 K/uL (0.0-1.0); MONOCYTE % 10.9 %; MPV 10.2 fl (9.4-12.4); NEUTROPHIL # (ANC) 5.4 K/uL (1.8-7.8); NEUTROPHIL % 62.3 %; NRBC % 0 /100WBC (0-0.00); PLATELET COUNT 191 K/uL (150-450); WBC 8.6 K/uL (4.0-11.0)
[2017-06-11 03:59] LABS: MCH 31.7 pg (27.0-34.0); RBC 2.52 M/uL (3.50-5.50); RDW-CV 16.2 % (11.9-14.6)
[2017-06-11 04:05] LABS: INR - (THERAPEUTIC) 1.18 (0.92-1.07); PROTIME 12.4 SECONDS (9.8-11.4)
[2017-06-11 04:13] LABS: ALBUMIN 2.4 gm/dL (3.5-5.0); CREATININE 0.8 mg/dL (0.5-1.1); MAGNESIUM 2.1 mg/dL (1.8-2.6); POTASSIUM 3.6 mMol/L (3.7-5.1)
[2017-06-11 04:16] LABS: ANION GAP 9.6 (10.0-19.0); PHOSPHORUS 1.4 mg/dL (2.5-4.9)
[2017-06-11 18:00] LABS: HEMATOCRIT 27.4 % (33.0-46.0); HEMOGLOBIN 9.4 g/dL (10.0-15.0)
[2017-06-11 18:11] LABS: CALCIUM 8.3 mg/dL (8.5-10.5); CREATININE 0.8 mg/dL (0.5-1.1); MAGNESIUM 1.9 mg/dL (1.8-2.6)
[2017-06-12 06:11] LABS: BASOPHIL % 0.4 %; EOSINOPHIL # 0.3 K/uL (0.0-0.5); HEMATOCRIT 26.9 % (33.0-46.0); HEMOGLOBIN 9.3 g/dL (10.0-15.0); IMMATURE GRANULOCYTE # 0.1 K/uL (0.0-0.3); IMMATURE GRANULOCYTE % 0.5 %; LYMPHOCYTE # 1.7 K/uL (0.8-4.0); LYMPHOCYTE % 18.3 %; MCH 32.1 pg (27.0-34.0); MCHC 34.6 gm/dL (32.0-36.5); MCV 92.8 fl (83.0-98.0); MONOCYTE # 1.1 K/uL (0.0-1.0); MONOCYTE % 11.2 %; MPV 10.5 fl (9.4-12.4); NEUTROPHIL # (ANC) 6.3 K/uL (1.8-7.8); NEUTROPHIL % 66.6 %; NRBC % 0 /100WBC (0-0.00); RDW-CV 15.5 % (11.9-14.6); WBC 9.5 K/uL (4.0-11.0)
[2017-06-12 06:13] LABS: PLATELET COUNT 281 K/uL (150-450)
[2017-06-12 06:22] LABS: INR - (THERAPEUTIC) 1.13 (0.92-1.07); PROTIME 11.9 SECONDS (9.8-11.4)
[2017-06-12 06:29] LABS: ALBUMIN 2.7 gm/dL (3.5-5.0); ANION GAP 10.4 (10.0-19.0); CALCIUM 8.3 mg/dL (8.5-10.5); CREATININE 0.6 mg/dL (0.5-1.1); MAGNESIUM 1.9 mg/dL (1.8-2.6); POTASSIUM 4.4 mMol/L (3.7-5.1)
[2017-06-12 06:30] LABS: PHOSPHORUS 0.8 mg/dL (2.5-4.9)
[2017-06-13 04:34] LABS: INR - (THERAPEUTIC) 1.34 (0.92-1.07); PROTIME 14.1 SECONDS (9.8-11.4)
== END 2017-06-13 13:30 | DRG 480 ==
LOC: GACC 18:40 → G3N 20:38 → GPCU 06-09 20:36 → G3N 06-11 21:46
PROVIDERS: Emergency Medicine; Internal Medicine; Orthopaedic Surgery; Physician Assistant; ADMIT Internal Medicine
PROC: 0QS606Z Reposition Right Upper Femur with Intramedullary Internal Fixation Device, Open Approach (ICD-10-PCS; principal; 2017-06-08)
DX: S72.091A Other fracture of head and neck of right femur, initial encounter for closed fracture (principal); E43 Unspecified severe protein-calorie malnutrition; N17.9 Acute kidney failure, unspecified; F03.90 Unspecified dementia, unspecified severity, without behavioral disturbance, psychotic disturbance, mood disturbance, and anxiety; I48.0 Paroxysmal atrial fibrillation; D68.9 Coagulation defect, unspecified; G47.34 Idiopathic sleep related nonobstructive alveolar hypoventilation; D62 Acute posthemorrhagic anemia; W18.39XA Other fall on same level, initial encounter; Z91.81 History of falling; Y93.9 Activity, unspecified; Y92.019 Unspecified place in single-family (private) house as the place of occurrence of the external cause; I10 Essential (primary) hypertension; Z79.01 Long term (current) use of anticoagulants; F32.9 Major depressive disorder, single episode, unspecified; Z88.8 Allergy status to other drugs, medicaments and biological substances; M19.90 Unspecified osteoarthritis, unspecified site; Z86.718 Personal history of other venous thrombosis and embolism; H35.30 Unspecified macular degeneration; Z96.653 Presence of artificial knee joint, bilateral; I35.8 Other nonrheumatic aortic valve disorders
CPT/HCPCS: A9270; C1713; J0282; J0690; J1160; J1650; J1940; J3010; J7030; J7040; J7042; J7050; J7060; J7120; P9016; P9045

== ENCOUNTER → 2017-06-06 | Outpatient (CLI) | payer MEDICARE, OTHER | END | disposition disaster alternative care site (69) | LOC: GAMB 18:10 | DX: M79.651 Pain in right thigh (principal); M25.551 Pain in right hip; Z87.891 Personal history of nicotine dependence | CPT/HCPCS: A0422; A0425; A0427; J3010 ==

== ENCOUNTER → 2017-06-15 | Outpatient (CLI) | payer MEDICARE, OTHER ==
[~2017-06-15] MED LIST changes: +"\\\"PREP SPRAY\\\"-TIN4 OZ"; +BENADRYL25 MG PO; +CALCIUM 1,0001 EACH PO; +COLACE100 MG PO; +CORDARONE,PACE200 MG PO; +DULCOLAX10 MG R; +KEPPRA500 MG PO; +LEXAPRO20 MG PO; +LOVENOX 6060 MG/0.6 SUB-Q; +MILK OF MA400 MG/5 M PO; +NORCO 5-325 TA1 EACH PO; +NYSTATIN100000 UNI PO; +SURFAK240 MG PO; +TYLENOL EXTRA500 MG PO
[2017-06-15 15:05] LABS: INR - (THERAPEUTIC) 1.39 (0.92-1.07)
[2017-06-15 15:13] LABS: PROTIME 14.6 SECONDS (9.8-11.4)
== END ==
PROVIDERS: Family Medicine
DX: I48.91 Unspecified atrial fibrillation (principal)

== ENCOUNTER 2017-06-18 07:58 | Inpatient (IN) | payer MEDICARE, OTHER ==
[~2017-06-18] VITALS: Ht 152.4 cm; Wt 68.8 kg
--- NOTE | ~2017-06-18 | ER ---
PATIENT'S NAME: JUNG LINARES [facility] AGE: 77 Y [address] ROOM: [place] [address] LOCATION: GICU ADMIT DATE: 06/18/2017 ER/Outpatient Report DISCHARGE DATE: FAMILY PHYSICIAN: Vivian Davis MD ATTENDING PHYSICIAN: Johnny Jacobo CHIEF COMPLAINT: Low blood pressure and illness. HISTORY OF PRESENT ILLNESS: Ms. Linares presents with the ambulance for further evaluation of low blood pressures. The patient has a history of advanced dementia and was recently hospitalized for a fall with hip fracture. She was in the hospital for several days and was complicated by episodes of atrial fibrillation. She is on warfarin for anticoagulation. She has been having some low numbers recently. She is normally not very verbal, but usually is awake and can communicate relatively well with family. She is not truly ambulatory, but could support her weight for transfers prior to her fall recently and she is currently in rehab. She has no other specific complaints and family notes that she just is not quite her normal self. This morning upon waking, she was even less so herself and those vital signs were taken and she was found to have blood pressures in the 60s over 40s and heart rates in the 120s. Thus, the ambulance was called and she was brought in for further evaluation and treatment. No known fevers at this time. PAST MEDICAL HISTORY: Documented on the record and reviewed by me. SOCIAL HISTORY: Documented on the record and reviewed by me. MEDICATIONS: Documented on the record and reviewed by me. ALLERGIES: DOCUMENTED ON THE RECORD AND REVIEWED BY ME. REVIEW OF SYSTEMS: All systems were reviewed and negative except as noted in the HPI with family and EMS giving the bulk of the history as the patient is currently nonverbal. PHYSICAL EXAMINATION: VITAL SIGNS: Blood pressure initially 106/53, pulse is 122, respiratory rate is 22, temp 98.6, SpO2 is 95% on room air. Pain 0/10. GENERAL: Age-appropriate female, frail appearance, recumbent on exam table. PATIENT'S NAME: JUNG LINARES [facility] AGE: 77 Y [address] ROOM: [place] [address] LOCATION: [facility] ADMIT DATE: 06/18/2017 ER/Outpatient Report DISCHARGE DATE: FAMILY PHYSICIAN: Vivian Davis MD ATTENDING PHYSICIAN: Johnny Jacobo No apparent pain or distress. NEUROLOGIC: The patient is awake. She does regard the examiner. She tries to talk and is very slow to follow commands in any extremities. No clear focal deficits, more of a global [employer] depression. Family states that she appears to be near her baseline, but is generally not quite herself. HEENT: Normocephalic and atraumatic. Eyes are PERRL. The oropharynx is tacky, otherwise no erythema or exudates. NECK: Supple. Trachea is midline. CHEST: Heart is tachycardic. No murmurs. LUNGS: Grossly clear but poor inspiratory effort. ABDOMEN: Soft, nontender, and nondistended. No rebound or guarding. BACK: Normal to inspection and palpation. No CVA tenderness or obvious source. RECTAL: Slightly decreased rectal tone with no gross blood. No obvious masses. Hemoccult is obtained. EXTREMITIES: Warm and relatively well perfused. Slightly decreased capillary refill. The digits are slightly cool. SKIN: Pale, but dry and appears to be intact with no obvious rashes. LABORATORY DATA AND X-RAYS: Chest x-ray does not show any acute abnormalities though slightly rotated and it is difficult to evaluate the left hemidiaphragm. EKG reveals sinus tachycardia with no clear ischemic changes and slight ST-segment depression in the lateral leads. Head CT without any acute findings per Radiology. Procalcitonin 0.10. Blood type is A positive. Hemoccult is negative. CK-MB is 1.4. Troponin is undetectable. TSH is 1.2. Urinalysis with 500 leukocytes, 30 protein, 5 ketones, 1 urobilinogen, 50 of blood, micro with 50- 100 wbc's, rare rbc's, rare epithelials, few bacteria. CMS, no electrolyte abnormalities. Glucose 135, creatinine 1.3, baseline less than 1. GFR is 39. AST of 49, alkaline phosphatase 154, ALT of 47, PTT is 47. Pro-time is 35.9. INR is 3.38. CBC: White count is 18.8, 14.9 neutrophils, hemoglobin is 6.7 down from 9.3, and platelets of 541. Lactate is 1.9. IMPRESSION: 1. Severe sepsis versus septic shock that appears to be fluid responsive with presumed source of urinary tract infection. 2. Presumed urinary tract infection. 3. Acute kidney injury. 4. Mild encephalopathy confounded by dementia. 5. Anemia of undetermined etiology. 6. Supratherapeutic INR. EMERGENCY DEPARTMENT COURSE: The patient was seen evaluated as above. IV was initiated and the patient was observed shortly from hemodynamic standpoint and found to have down trending PATIENT'S NAME: JUNG LINARES [facility] AGE: 77 Y [address] ROOM: [place] [address] LOCATION: [facility] ADMIT DATE: 06/18/2017 ER/Outpatient Report DISCHARGE DATE: FAMILY PHYSICIAN: Vivian Davis MD ATTENDING PHYSICIAN: Johnny Jacobo blood pressures. She responded well to 300 mL bolus of normal saline, but then became hypotensive again. By that time, at approximately 8:30 a.m., we were able to secure the lab results. We think she likely has a urinary tract infection and this seals the diagnosis of at least severe sepsis. She has some low blood pressures, however, they are fluid responsive and no pressors were required to be started. She was given a 30 mL bolus of normal saline and 1 unit of blood and the patient stabilized somewhat with heart rates around 100-105 and blood pressures did stabilize in the 130s to 140 systolically. She did have improvement in her mental status at that time. I contacted Dr. Cole Jacobo, hospitalist, to admit the patient to the intensive care unit in the setting of presumed severe sepsis with possible septic shock. The family was updated at bedside. They have elected to not pursue any invasive procedures at this time in the ER. Thankfully, she did not require any pressors. She was otherwise DNR. CRITICAL CARE TIME: 51 minutes of critical care time was spent on this patient, in patient evaluation, receiving report from EMS, ordering and interpreting, EKG, labs, and chest x-ray. Ordering CT, discussion of CT results with Radiology, consulting admitting physician, directing fluid, and antibiotic management as well as patient re-evaluation. Critical care time is warranted for hypotension from presumed severe sepsis versus septic shock. Again, the patient was volume responsive and appeared to stabilize her blood pressures after administration of the fluid bolus. Blood cultures were obtained and she was started on Rocephin and vancomycin for broad-spectrum coverage. MD BAKARI QUEEN/gaston /[id number] d: 06/18/17 2105 t: 06/21/17 0741, OUTPATIENT REPORT
--- NOTE | ~2017-06-18 | HP ---
PATIENT'S NAME: JUNG LINARES [facility] AGE: 77 Y [address] ROOM: [place] [address] LOCATION: [facility] ADMIT DATE: 06/18/2017 History & Physical DISCHARGE DATE: FAMILY PHYSICIAN: Vivian Davis MD ATTENDING PHYSICIAN: Johnny Jacobo DATE OF SERVICE: CHIEF COMPLAINT: Severe sepsis with septic shock. HISTORY OF PRESENTING ILLNESS: This 77-year-old white female with previous history of chronic atrial fibrillation, on long-term anticoagulation with warfarin and a recent hip fracture status post repair, was brought back to the [facility] Emergency Department this morning with lethargy, poor responsiveness, and hypotension. She had an episode yesterday while she was working with therapy. Apparently, they had attempted to stand her. She sort of stood for around 5 seconds according to her and then became faint. They noticed her blood pressure to be low and they helped her back to the bed. Her condition seemed to improve. Today, she was noted to be increasingly lethargic and poorly responsive. Blood pressures were reportedly in the 60s. EMS services were dispatched, and she was brought here for definitive evaluation and management. Initially, the source of her hypotension was not clear and she was afebrile. Her laboratory evaluation did reveal the presence of pyuria and sepsis was suspected. She did receive an IV fluid bolus of 500 mL initially and she improved a little bit. Sepsis was declared at 8:45. She received antibiotic therapy with Rocephin and vancomycin in the emergency room. On my evaluation, she was awake but very poorly responsive. Clinically, condition seemed to be improving since the point of her arrival in the emergency room. She was able to follow some very simple commands including hand grasp but did not verbalize. reports that her progress with therapies has been slow, but she has not been in a significant amount of pain. She has been feeding albeit poorly. She has not complained of chest pain or abdominal pain. She has not had any diarrhea. There has been no noticeable blood loss. She has been generally cooperative with nursing cares. ALLERGIES: HYDROMORPHONE, CAUSES UNRESPONSIVENESS. ILLNESSES: 1. Chronic atrial fibrillation, on long-term anticoagulation with warfarin. PATIENT'S NAME: JUNG LINARES [facility] AGE: 77 Y [address] ROOM: [address] [address] LOCATION: [facility] ADMIT DATE: 06/18/2017 History & Physical DISCHARGE DATE: FAMILY PHYSICIAN: Vivian Davis MD ATTENDING PHYSICIAN: Johnny Jacobo 2. Dementia. 3. Essential hypertension. 4. Chronic constipation. 5. Moderate protein-calorie malnutrition. 6. Depression. 7. Osteoarthritis, generalized. CURRENT MEDICATIONS: 1. Lovenox 60 mg subcu b.i.d. 2. Milk of magnesia 30 mL p.o. q.24 hours p.r.n. constipation. 3. Tylenol 1000 mg p.o. q.6 hours p.r.n. pain or fever. 4. Coumadin daily. 5. Lopressor 25 mg p.o. b.i.d. 6. Lotensin 20 mg p.o. b.i.d. 7. Nystatin suspension 100,000 units per mL, 5 mL p.o. q.i.d. 8. Calcium with vitamin D 600/400 two tabs p.o. daily. 9. Catapres 0.15 mg p.o. at bedtime. 10. Fosamax 70 mg p.o. every week. 11. Lexapro 20 mg p.o. daily. 12. Multivitamin daily. 13. Norvasc 5 mg p.o. daily. 14. Amiodarone 200 mg p.o. b.i.d. 15. Keppra 500 mg p.o. b.i.d. 16. Colace 100 mg p.o. t.i.d. 17. Benadryl 25 mg p.o. q.6 hours p.r.n. allergies. 18. Dulcolax suppository 10 mg p.r. daily p.r.n. 19. Ney 5/325 one tab p.o. q.4 hours p.r.n. pain. 20. Surfak 240 mg p.o. daily. FAMILY HISTORY: Negative for heart attack or stroke. SOCIAL HISTORY: She is . She has lived at home and her has acted as her caregiver until her recent hip fracture. She has been a resident of a nursing facility since her recent hospital discharge. There is no significant history of tobacco or alcohol use. REVIEW OF SYSTEMS: As per HPI. All other organ systems reviewed and are negative. PHYSICAL EXAMINATION: VITAL SIGNS: Temperature 98.6, pulse 122, respirations 22, blood pressure 106/53, and O2 saturation 95% on room air. GENERAL: She is frail, ill appearing, very poorly responsive, in no acute PATIENT'S NAME: JUNG LINARES [facility] AGE: 77 Y [address] ROOM: [facility] [place] [address] LOCATION: [facility] ADMIT DATE: 06/18/2017 History & Physical DISCHARGE DATE: FAMILY PHYSICIAN: Vivian Davis MD ATTENDING PHYSICIAN: Johnny Jacobo. SKIN: Supple, pale, warm, and dry. There are no active rashes. She has a large area of ecchymosis overlying the right hip consistent with recent surgery. There is some underlying skin induration but no purulence. No skin breech. The wound itself is clean and intact. The wound edges are well approximated. There is Steri-Strips in place with a little bit of dried blood present. HEENT: Otherwise, normocephalic. Sclerae nonicteric. Pupils equal, round, and reactive to light and accommodation. Extraocular movements appear intact. Pupils are 3 to 4 mm very slowly reactive. Nasal turbinates normal in appearance. Oropharynx clear. Mucous membranes are pink and dry. Dentition is in normal age-related repair. NECK: Supple. Cachectic. No masses or adenopathy. No thyromegaly. No obvious JVD in the 30 degree position. CHEST: Chest wall is symmetrical. HEART: Tachycardic. Regular with frequent extrasystoles. There is a grade 2 to 3/6 systolic ejection murmur. LUNGS: Diminished at the bases. No crackles are heard. No wheezes. No areas of consolidation. ABDOMEN: Soft. Mildly obese. No masses or hepatosplenomegaly. Bowel sounds are present but diminished. No guarding or rebound tenderness. and RECTAL: Exam shows normal female external genitalia. EXTREMITIES: Display 1 to 2+ pitting edema right greater than left. NEUROLOGIC: Mentation is extremely slowed but she moves all extremities equally. Cranial nerves 2 through 12 appear grossly intact. Sensation appears normal. Strength is 0 to 1 out of 5 bilaterally in upper and lower extremities. DTRs are 0 to 1+ and roughly symmetrical. Gait is not observed. LABORATORY AND X-RAY DATA: Chest x-ray shows mild cardiomegaly. There is an opacity in the left lung base but no obvious infiltrate. CBC showed a white blood cell count elevated at 18.8, hemoglobin is 6.7, hematocrit 20.1, and platelets 541. Chemistries reveal BUN and creatinine of 15 and 1.3 respectively. Sodium and potassium 139 and 4.4, chloride and CO2 are 105 and 26, calcium 8.5. AST and ALT of 49 and 47, bilirubin is 0.7, glucose was 135. PT and PTT of 35.9 and 47 with an INR of 3.38. Urinalysis was significant for 50 to 100 wbc's, 50 rbc's. Cardiac enzymes revealed a troponin I of less than 0.04. Lactate was 1.9. TSH was 1.2, free T4 of 1.4. Procalcitonin 0.1. Blood cultures obtained. ASSESSMENT AND PLAN: 1. Severe sepsis with septic shock. Urinary tract infection appears to be the primary focus at least initially. Cultures have been obtained as described above. She has already received Rocephin and vancomycin in the emergency room. We will admit to inpatient care and place her in the intensive care unit. I placed her on the sepsis pathway. We will augment her antibiotic regimen with Zosyn and continue the vancomycin at least PATIENT'S NAME: JUNG LINARES [facility] AGE: 77 Y [address] ROOM: [place] [address] LOCATION: [facility] ADMIT DATE: 06/18/2017 History & Physical DISCHARGE DATE: FAMILY PHYSICIAN: Vivian Davis MD ATTENDING PHYSICIAN: Johnny Jacobo for now. We will follow up on culture results when they are known and make adjustments if necessary. At least for now she has responded well to IV fluid boluses. We will initiate pressor therapy if necessary; however, the family has expressed wishes not to escalate therapy and to avoid any interventions including the placement of a central line. She has good peripheral IV access for now and we will try to utilize that. If her condition should deteriorate or if she worsens, they requested to observe DNR/DNI status. 2. Acute kidney injury, probably prerenal secondary to sepsis as above. We will see how she response to IV fluids. We will try to watch her fluid volume balance closely. 3. Acute blood loss anemia. Hemoglobin has trended down. Dr. Hernandez requested 2 units PRBCs and we will go ahead and administer those. There does not appear to be any evidence for active bleeding and there is no clear evidence for wound dehiscence. We will request Orthopedic Surgery to evaluate. 4. Atrial fibrillation. She appears to be in sinus rhythm, although tachycardic. Her rates are improving with aggressive IV fluid hydration therapy. We will plan to continue with amiodarone and try to maintain anticoagulation status unless there was evidence for bleeding. Her initial stool Hemoccult was negative. 5. Essential hypertension. We will hold the antihypertensive regimen until her renal function improves. 6. Acute encephalopathy, multifactorial. Expect improvement with supportive cares. Her baseline functional status is quite poor. She will likely need permanent fci care. 7. Dementia, Alzheimer's type without agitation. We will continue with supportive cares and monitor. 8. Gait instability, chronic. We will engage in some restorative cares as above. Observe strict fall precautions. 9. Deep venous thrombosis prophylaxis. She is currently fully anticoagulated. We will plan to continue with Coumadin. MD COURTNEY CEJA/gaston /[id number] D: [id number] T: [id number] HISTORY & PHYSICAL
--- NOTE | ~2017-06-18 | CON ---
PATIENT'S NAME: JUNG LINARES [facility] AGE: 77 Y [address] ROOM: [id number] [place], [place] [address] LOCATION: GICU ADMIT DATE: 06/18/2017 Consultation DISCHARGE DATE: FAMILY PHYSICIAN: Vivian Davis MD ATTENDING PHYSICIAN: Johnny Jacobo REFERRING PHYSICIAN: SHELLIE RAYO MD HISTORY OF PRESENT ILLNESS: I was consulted today to follow up with Ms. Linares about her right hip. We performed an open reduction and internal fixation of a right hip fracture for her on June 09. She was discharged to a local halfway facility on the . She was discharged on her baseline Coumadin dose as well as Lovenox (due to the fact that her INR was not yet therapeutic). She was readmitted to the hospital on June 18 with urosepsis. Her and daughter (both of whom are at her bedside) report that she was "very confused" at the time of transfer back to the hospital. They report that her mental status has improved significantly and that she is now responsive. They have noted no trend of increased right hip discomfort, but significant swelling at the right hip has been noted. She was noted to be quite anemic on admission. She is being transfused because of anemia. A CT scan was reported by the Hospitalist Team to evaluate the right hip swelling. This is confirmed the presence of a fluid collection in the vicinity where a hematoma would be expected at this stage after hip fracture fixation. No pain or swelling has been noted at either knee. Her past orthopedic history is significant for having undergone successful bilateral knee replacements with me in the past. She has not yet returned to our office for initial postop followup due to the fact that she has been readmitted to the hospital. The Hospitalist Team informed me that the hip did not seem infected to them, but they wanted me to be aware that she was in the hospital, so that we could follow up with her. PHYSICAL EXAMINATION: The patient is a frail, elderly female. She moves her extremities to command and spontaneously opens her eyes. Respirations are nonlabored. She appears comfortable. There is no dressing on either her hip incisions. The incisions are clean, dry, and intact without erythema. I asked the new Mepilex dressings be applied to each of her 2 incisions. There is moderate ecchymosis and moderate swelling throughout the right thigh. There is no erythema or abnormal warmth. There is no effusion or tenderness or erythema or abnormal warmth at either knee. There are well-healed midline longitudinal scars at both knees. There is no pain with passive range of motion of either knee. RADIOGRAPHS: AP and lateral radiographs of the right hip are reviewed. There is a position. There has been slight compression across the fracture. CT scan images are reviewed. This also confirms that the hardware is in good PATIENT'S NAME: JUNG LINARES [facility] AGE: 77 Y [address] ROOM: [place] [address] LOCATION: [facility] ADMIT DATE: 06/18/2017 Consultation DISCHARGE DATE: FAMILY PHYSICIAN: Vivian Davis MD ATTENDING PHYSICIAN: Johnny Jacobo position and that the fracture remains well aligned. The screw has not cut out of the femoral head. There is a moderate-sized fluid collection (consistent with hematoma) at the right gluteal region. LABORATORY DATA: The patient's INR was greater than 3 upon admission. IMPRESSION: Maintenance of satisfactory alignment status post open reduction and internal fixation of the right hip. Postoperative hematoma. Anemia associated with concomitant Lovenox and therapeutic Coumadin. Urosepsis with risk of secondary infection of the right hip and/or bilateral knee replacements. No evidence of infection of right hip or either knee. RECOMMENDATIONS: Continue the antibiotics that have been initiated to treat her urinary tract infection. Continue right toe-touch weightbearing. with strict adherence to weightbearing restrictions. I have asked that Lovenox be discontinued. She is to follow up with me in 1 week after discharge from the hospital. I will follow her along while she remains hospitalized. MD VIDYA JIMENEZ/gaston /[id number] CC: Johnny Jacobo MD d: 06/20/17 2207 t: 07/04/17 0748, CONSULTATION REPORT
--- NOTE | ~2017-06-18 | DS ---
PATIENT'S NAME: JUNG LINARES [facility] AGE: 77 Y [address] ROOM: [id number] [place], [place] [id number] LOCATION: GICU ADMIT DATE: 06/18/2017 Discharge Summary DISCHARGE DATE: 06/26/2017 FAMILY PHYSICIAN: Vivian Davis MD ATTENDING PHYSICIAN: Johnny Jacobo FINAL/DISCHARGE DIAGNOSES: 1. Sepsis with shock. 2. Pseudomonas and enterococcus urinary tract infection. 3. Clostridium difficile colitis. 4. Acute blood loss anemia. 5. Moderate protein-calorie malnutrition. 6. Chronic atrial fibrillation. 7. Dementia. 8. Chronic constipation. 9. Essential hypertension. 10. Acute kidney injury on chronic kidney disease. 11. Recent right hip fracture status post open reduction and internal fixation. CONSULTATIONS: Consultants on the case; Dr. Shravan Robb and Dr. Dominic Forbes. HOSPITAL COURSE: Please see details of admission in H and P by Dr. Jacobo. Briefly, the patient was admitted with severe sepsis and septic shock secondary to urinary tract infection. The patient was started on Zosyn, vancomycin, and aggressive fluid resuscitation. Please review sepsis orders. The patient was placed in the ICU secondary to her severity of disease. The patient quickly regained some level of consciousness. She remained confused, slightly worse than her baseline. Initially, the patient did have poor urinary output. Catheter was placed with adequate output noted. On the , it was felt that the patient could safely be transferred out of the ICU and placed on neurotrauma status. The patient received 2 units of packed red blood cells in the emergency room on the due to a hemoglobin of 6.0. She did receive another unit. Vital signs showed gradual improvement. The patient does have history of atrial fibrillation, but her rates remained stable. INR was supratherapeutic and thus her Lovenox and Coumadin withheld. After an acute drop in hemoglobin, we did get a CT scan of the right lower extremity to rule out hematoma secondary to her acute blood loss anemia. The patient received two more units of FFP as well as two units of packed cells secondary to elevated INR and depressed hemoglobin. On the , the patient's urine culture did show Pseudomonas and Enterococcus and antibiotics were de-escalated. The patient developed diarrhea and C. difficile was checked. We did get a positive result and patient was initiated on the C. difficile order set with p.o. vancomycin. On , Dr. Robb was consulted PATIENT'S NAME: JUNG LINARES [facility] AGE: 77 Y [address] ROOM: [id number] [place] [address] LOCATION: [facility] ADMIT DATE: 06/18/2017 Discharge Summary DISCHARGE DATE: 06/26/2017 FAMILY PHYSICIAN: Vivian Davis MD ATTENDING PHYSICIAN: Johnny Jacobo on the previous hip fracture. The patient was to remain toe-touch weightbearing and continue her current level of activity as tolerated. The patient's hemoglobin kind of waxed and waned to 7 to 7.5. On the , we did discontinue her Zosyn and started Levaquin after checking an EKG for QTc prolongation. On June 25, the patient did have low magnesium which was replaced orally. I did switch her over to oral Levaquin and on the , it was felt that the patient could safely be discharged back to group home facility to continue her convalescent care. IMAGING STUDIES: Diagnostics: 1. EKG on the showed sinus tachycardia with a heart rate of 121. 2. Chest x-ray on 06/18/2017 shows cardiac silhouette enlargement, several remote appearing left upper rib fractures and scattered fibrotic stranding with no focal infiltrates or effusions noted. 3. Right hip x-ray on 06/20/2017 shows changes of right hip pinning, surgical hardware intact, increased soft-tissue density overlying the proximal right thigh may represent the patient's fluid collection. 4. CT scan on the of the head shows no acute hemorrhage or midline shift, atrophic changes and extensive chronic white matter changes, and stable overall appearance. 5. CT scan of the pelvis with contrast shows a large fluid collection involving the right gluteus julieta muscle on the left and posterior left thigh as described above, measuring 8.7 x 4.7 x 8 cm. Second fluid collection present in the left thigh measuring 21 x 5.2 x 8 cm. No internal air collections were identified. Subcutaneous edema and hemorrhage along the proximal right thigh, cellulitis could not be excluded. LABORATORY DATA: On admission, white blood cell count was 18.8, hemoglobin 6.7, hematocrit 20.1, and platelets 541,000. Hemoglobin waxed and waned between 6 and 7. Trended up to 7.5 on the , then back down to 7.4 on the . Urinalysis did have 50 white blood cells and a few bacteria in the microanalysis. Cardiac enzymes were all within normal limits throughout her stay. Initial ABG showed a pH of 7.34, pCO2 of 47, pO2 of 56, HCO3 of 25.4, CO2 content of 27, and base excess is negative at 0.8. Lactate was 1.9 and 1.7 respectively. On admission, sodium was 139, potassium 4.4, chloride 105, bicarbonate 26, glucose 135, BUN 15, and creatinine 1.3. Procalcitonin on the was 0.1. Urine culture showed Pseudomonas aeruginosa, greater than 100,000 colonies and Enterococcus faecalis greater than 100,000 colonies. DISCHARGE INSTRUCTIONS: The patient is discharged to [facility] under the care of Dr. Vivian Davis to follow up both, Dr. Robb in 1 week on May 03 at 2:[address] Dominic Forbes in 1 to 2 weeks. Diet is regular. Weightbearing status is toe-touch on the right lower extremity. We will continue occupational, physical, and speech therapies and PATIENT'S NAME: JUNG LINARES [facility] AGE: 77 Y [address] ROOM: [id number] [place] [id number] LOCATION: [facility] ADMIT DATE: 06/18/2017 Discharge Summary DISCHARGE DATE: 06/26/2017 FAMILY PHYSICIAN: Vivian Davis MD ATTENDING PHYSICIAN: Johnny Jacobo use oxygen as needed to maintain sats greater than 90%. We will check a CBC on Friday06/30/2017. The patient is not to have any dressing changes as per Dr. Robb's instructions. Her rehabilitation potential is poor, discharge potential is poor. The patient and family are aware of her condition and prognosis on discharge. DISCHARGE MEDICATIONS: 1. Vancomycin 125 mg p.o. every 6 hours with a stop date of 07/03/2017. 2. Amiodarone 200 mg twice daily. 3. Norvasc 5 mg daily. 4. Lotensin 20 mg twice daily. 5. Lexapro 20 mg daily. 6. Keppra 500 mg twice daily. 7. Levaquin 500 mg daily with a stop date of 06/29/2017. 8. Magnesium oxide 400 mg 3 times daily. 9. Metoprolol tartrate 25 mg twice daily. 10. Multivitamin 1 tablet daily. 11. Protonix 40 mg daily. 12. Tylenol 500 to 1000 mg every 6 hours as needed. 13. Dulcolax suppository 10 mg rectally every 24 hours as needed. 14. Docusate sodium 100 mg 3 times daily as needed. 15. Benadryl 25 mg q.6 hours p.r.n. 16. Surfak 240 mg every day as needed. 17. Milk of magnesia 30 mL every 24 hours as needed. 18. Calcium 2 tablets daily. 19. Fosamax 70 mg every 7 days. 20. Easley 5/325, 1 tablet every 4 hours as needed. We do appreciate participating in this patient's care. Thank you very much for the ability to serve her while hospitalized at [place]. Time spent coordinating details of discharge was 37 minutes of which was spent coordinating with consulting physicians and Care Management, completion of medication reconciliation, and education to the patient and family on the above-mentioned diagnoses. SOBEIDA SPEARS FOR MD RAHUL SKELTON/gaston /[id number] d: 06/26/[id number] t: 06/30/17 1404, DISCHARGE SUMMARY
[~2017-06-18 07:58] MED LIST changes: -COLACE100 MG PO; -CORDARONE,PACE200 MG PO; -DULCOLAX10 MG R; -KEPPRA500 MG PO; -LOVENOX 6060 MG/0.6 SUB-Q; -MILK OF MA400 MG/5 M PO; -NORCO 5-325 TA1 EACH PO; -NYSTATIN100000 UNI PO; -TYLENOL EXTRA500 MG PO
[2017-06-18 08:43] LABS: BASOPHIL % 0.2 %; EOSINOPHIL % 0.1 %; IMMATURE GRANULOCYTE # 0.4 K/uL (0.0-0.3); IMMATURE GRANULOCYTE % 1.9 %; LYMPHOCYTE % 10.6 %; MONOCYTE # 1.4 K/uL (0.0-1.0); MONOCYTE % 7.5 %; MPV 9.2 fl (9.4-12.4); NEUTROPHIL # (ANC) 14.9 K/uL (1.8-7.8); NEUTROPHIL % 79.7 %; NRBC % 0 /100WBC (0-0.00); RDW-CV 17.2 % (11.9-14.6)
[2017-06-18 08:49] LABS: HEMATOCRIT 20.1 % (33.0-46.0); HEMOGLOBIN 6.7 g/dL (10.0-15.0); INR - (THERAPEUTIC) 3.38 (0.92-1.07); MCH 32.8 pg (27.0-34.0); MCHC 33.3 gm/dL (32.0-36.5); MCV 98.5 fl (83.0-98.0); PLATELET COUNT 541 K/uL (150-450); PROTIME 35.9 SECONDS (9.8-11.4); RBC 2.04 M/uL (3.50-5.50); WBC 18.8 K/uL (4.0-11.0)
[2017-06-18 09:07] LABS: BLOOD URINE 50 /UL (NEGATIVE); COLOR URINE YELLOW (YELLOW); GLUCOSE URINE NEGATIVE (NEGATIVE); KETONE URINE 5 mg/dL (NEGATIVE); LEUKOCYTES URINE 500 /UL (NEGATIVE); NITRITE URINE NEGATIVE (NEGATIVE); PROTEIN URINE 30 mg/dL (NEGATIVE); SPEC GRAVITY URINE 1.015 (1.003-1.035); TURBIDITY URINE 1+ (CLEAR); UROBILINOGEN URINE 1 mg/dL (NORMAL)
[2017-06-18 09:08] LABS: ALBUMIN 2.5 gm/dL (3.5-5.0); ANION GAP 12.4 (10.0-19.0); CALCIUM 8.5 mg/dL (8.5-10.5); CREATININE 1.3 mg/dL (0.5-1.1); POTASSIUM 4.4 mMol/L (3.7-5.1); TOTAL PROTEIN 5.5 g/dL (6.0-8.4)
[2017-06-18 09:10] LABS: TOTAL BILIRUBIN 0.7 mg/dL (0.0-1.5)
[2017-06-18 09:16] LABS: EPITHELIAL URINE RARE #/HPF (NEGATIVE); RBC URINE RARE #/HPF (NEGATIVE); WBC URINE 50-100 #/HPF (NEGATIVE)
[2017-06-18 09:17] LABS: BACTERIA URINE FEW (NEGATIVE)
[2017-06-18] MEDS ORDERED: COUMADIN ** IA5 MG PO (14:08)
[2017-06-18] MEDS ORDERED: KEPPRA500 MG PO (14:10)
[2017-06-18] MEDS ORDERED: CORDARONE,PACE200 MG PO (14:10)
[2017-06-18] MEDS ORDERED: COLACE100 MG PO (14:13)
[2017-06-18] MEDS ORDERED: DULCOLAX10 MG R (14:14)
[2017-06-18] MEDS ORDERED: NORCO 5-325 TA1 EACH PO (14:15)
[2017-06-18] MEDS ORDERED: TYLENOL EXTRA500 MG PO (14:16)
[2017-06-18] MEDS ORDERED: LOVENOX 6060 MG/0.6 SUB-Q (14:17)
[2017-06-18] MEDS ORDERED: MILK OF MA400 MG/5 M PO (14:18)
[2017-06-18] MEDS ORDERED: NYSTATIN100000 UNI PO (14:22)
[2017-06-18 14:51] LABS: BICARBONATE 25.4 mmol/L (18.0-23.0); PCO2 47 mmHg (35-45); PO2 56 mmHg (80-90)
[2017-06-18 15:37] LABS: HEMATOCRIT 21.1 % (33.0-46.0)
--- NOTE | 2017-06-18 16:12 | NUR ---
Significant Event:Patient is oriented to person only. ST with HR 113-116. SBO 89-101.Gave 250ml ns bolus on the floor. Afebrile.On room air. SPO2 >95%. Lungs asculted Clear/diminished.Hypoactive bowel sounds. No BM. Unable to place hernandez, No UOP. Denies pain. bladder scanned 28ml in bladder. Follow up:Continue.Rebladder scan bladder at 1830 and reattempt to place hernandez.
--- NOTE | 2017-06-19 04:41 | NUR ---
Significant Event: Patient is alert, inconsistent with orientation. Slow to verbally respond to questions asked, speech soft. Follows commands, weak in all extremeties. LS clear/dim, O2 >90% on RA. BS x4, BM this shift. Did not void, Bladder scans t/o shift were 100cc, 175cc, 181cc. Chatterjee placement attempt by charge nurse was unsuccessful, coude catheter used, no urine return. R) hip incision with steri strips CDI, R) hip et thigh edematous et ecchymotic. PIVs x2, 1 unit PRBCs transfused, patient tolerated well. Follow up: Monitor vitals et urine output
[2017-06-19 05:26] LABS: INR - (THERAPEUTIC) 4.48 (0.92-1.07); PROTIME 47.8 SECONDS (9.8-11.4)
[2017-06-19 05:35] LABS: CREATININE 1.2 mg/dL (0.5-1.1)
--- NOTE | 2017-06-19 10:05 | NUR ---
Introduced self and CM role to Kenneth and her who was at bedside. states that she has been at [facility] on a skilled stay for the past few days, she is a new resident there, and he is planning on her going back there when she is medically cleared to do so. He says that they do all of her medications there for her and also help her with her therapies. He tells me that he spends most of his days with her while she is there from the time she wakes up to the time she goes to bed. He has no questions, needs or concerns at this time. Plan for return back to [facility] when the time comes. Left my name on Barbie' whiteboard incaes any questions should come up. Also left a sticky note on the front of her chart detailing her dismissal plans. Number for RN to RN report was left on the sticky note as well. Packet started, orders printed, ID screen not needed as she is a return admit, fax cover letter filled out and infront of the orders as well. Phoned over to Nena at [facility], gave her a verbal update on Kenneth and then let her know that I would try to fax one later to her today as well. Nena is fine with this. CM to continue to follow and assist.
[2017-06-19 12:17] LABS: BASOPHIL % 0.1 %; EOSINOPHIL % 0.2 %; IMMATURE GRANULOCYTE # 0.4 K/uL (0.0-0.3); IMMATURE GRANULOCYTE % 1.5 %; LYMPHOCYTE # 2.2 K/uL (0.8-4.0); LYMPHOCYTE % 9.3 %; MCV 94.5 fl (83.0-98.0); MONOCYTE # 1.8 K/uL (0.0-1.0); MONOCYTE % 7.4 %; MPV 9.2 fl (9.4-12.4); NEUTROPHIL # (ANC) 19.4 K/uL (1.8-7.8); NEUTROPHIL % 81.5 %; NRBC % 0.1 /100WBC (0-0.00); RBC 1.82 M/uL (3.50-5.50); RDW-CV 17.5 % (11.9-14.6); WBC 23.8 K/uL (4.0-11.0)
[2017-06-19 12:18] LABS: HEMATOCRIT 17.2 % (33.0-46.0); MCHC 34.9 gm/dL (32.0-36.5); PLATELET COUNT 361 K/uL (150-450)
--- NOTE | 2017-06-19 12:39 | NUR ---
1220 ALERT VALUE CALLED BY LAB FOR HEMAGLOBIN @ 6.0
--- NOTE | 2017-06-19 12:40 | NUR ---
1227 CALLED MD LOWERY TO LET HIM KNOW VALUE. STILL STICKING WITH ORDER FOR 1 UNIT PRBC AND REPEAT H&H AT 1999.
--- NOTE | 2017-06-19 19:24 | NUR ---
PATIENT IS AAOX1. SHE DOES NOT KNOW THE YEAR OR WHERE SHE IS. SHE IS WEAK AND TENATIVE WITH ALL HER MOVEMENTS. SHE DOES NOT ALWAYS ANSWER QUESTIONS ASKED. SHE HAS ASKED TO GET OUT OF BED. SHE HAS ASKED TWICE DURING THE DAY TO GET UP SO SHE COULD HAVE A BOWEL MOVEMENT. SHE IS ON ROOM AIR AND A CLEAR LIQUID DIET (FINISHING ALMOST 100% EACH MEAL). SHE HAS BILATERAL 20G PIV IN HER FOREARMS. SHE IS INCONTINENT. WANTED A STAPLETON PLACED BUT IT DEEMED TOO DIFFICULT. MD LOWERY WAS OK WITH HER NOT HAVING ONE LONG SHE WAS CONSTANTLY INCONTINENT AND HER SKIN WASN'T MOIST ALL THE TIME. SHE HAS TWO BOWEL MOVMENTS TODAY AND HAS VOIDS BETWEEN EVERY 3 TO 4 HOURS. SHE HAD A UNIT OF PRBC TODAY AND POST CRIT WILL BE DRAWN AT 1999. SHE IS POST OP A FEW WEEKS FROM SURGERY ON HER FEMUR SO HER RIGHT LEG IS SWOLLEN AND PAINFUL WHEN HAVING TO TURN THAT WAY.
--- NOTE | 2017-06-19 19:29 | NUR ---
0800 PATIENT VOIDED AND HAVE A BOWEL MOVEMENT. BLADDER WAS SCANNED POST VOID AND 150 ML WERE RECORDED.
--- NOTE | 2017-06-19 19:30 | NUR ---
1145 BLADDER WAS SCAN MULTIPLE TIMES AND SCAN SHOWED 0 ML IN BLADDER. MARCUS GARCIA ALSO CHECK AND 0 ML WERE IN BLADDER.
--- NOTE | 2017-06-19 19:30 | NUR ---
1245 PATIENT ASKED RN TO USE BEDPAN. SHE WAS NOT ABLE TO VOID AND DID NOT HAVE A BOWEL MOVMENT.
--- NOTE | 2017-06-19 19:31 | NUR ---
1050 MD LOWERY WAS OK WITH PATIENT NOT HAVING A STAPLETON LONG SHE WASN'T INCONTINENT CONSTANTLY AND HER SKIN WASN'T MOIST ALL THE TIME.
[2017-06-19 19:55] LABS: HEMATOCRIT 20.8 % (33.0-46.0)
--- NOTE | 2017-06-20 02:41 | NUR ---
Significant Event: ALERT/ORIENTED 3. DROWSY AT BEGINNING OF SHIFT. NO NUMBNESS/TINGLING/HEADACHE. GENERALIZED WEAKNESS. MOVES EXTREMITIES TO COMMAND. WIGGLES TOES ON RIGHT. PULSES NORMAL. 3+ EDEMA TO LOWER EXTREMITIES. FOOT DROP TO BOTH FEET. SBP 100S, HR 80S-90S. HIGHEST TEMP 100.8. LUNGS COARSE, CLEAR WITH COUGH. TOOK PILLS BEST WHOLE 1 AT TIME WITH WATER. INCONTINENT B&B. 1 LOOSE BM. ECCHYMOTIC AREA TO PERINEUM, BLANCHABLE REDNESS TO COCCYX. TURN Q2H Follow up:
[2017-06-20 05:04] LABS: MCV 91.6 fl (83.0-98.0); MPV 9.3 fl (9.4-12.4); PLATELET COUNT 312 K/uL (150-450); RBC 1.91 M/uL (3.50-5.50)
[2017-06-20 05:05] LABS: WBC 28.8 K/uL (4.0-11.0)
[2017-06-20 05:07] LABS: HEMATOCRIT 17.5 % (33.0-46.0); MCH 31.4 pg (27.0-34.0); MCHC 34.3 gm/dL (32.0-36.5); RDW-CV 19.5 % (11.9-14.6)
[2017-06-20 05:24] LABS: ANION GAP 10.7 (10.0-19.0); POTASSIUM 3.7 mMol/L (3.7-5.1)
[2017-06-20 05:25] LABS: CALCIUM 7.1 mg/dL (8.5-10.5)
[2017-06-20 05:31] LABS: PROTIME 75.8 SECONDS (9.8-11.4)
[2017-06-20 05:32] LABS: INR - (THERAPEUTIC) 7.08 (0.92-1.07)
[2017-06-20 05:35] LABS: ABSOLUTE NEUTROPHIL CT (ANC) 25.3 K/uL (1.8-7.8); BANDED NEUTROPHIL # 0.3 K/uL (0.0-0.1); BANDED NEUTROPHILS % 1 %; LYMPHOCYTE # 2.6 K/uL (0.8-4.0); LYMPHOCYTE % 9 %; MONOCYTE # 0.9 K/uL (0.0-1.0); SEGMENTED NEUTROPHIL # 25.1 K/uL (1.8-7.8); SEGMENTED NEUTROPHIL % 87 %
--- NOTE | 2017-06-20 10:57 | NUR ---
Faxed an update to Nena at [facility]. Also left a note on the fax letting them know that she was now C-Diff (+). Will follow up with Nena on Friday and give her an update from over the weekend and set up a van time then. CM to continue to follow and assist.
--- NOTE | 2017-06-20 13:55 | NUR ---
Significant Event:PT IS AAOX3. HAS PERIODS WHERE SHE FALLS ASLEEP AND TAKE A LITTLE WHILE TO AROUSE. WAS BLINKING OFTEN THIS AM. HAS SINCE STOP. LUNG SOUNDS CLEAR TO CLEAR AND DIMINISHED. GOOD PULSES NOTED THROUGHOUT. 3+ EDEMA TO LOWER LEGS. RECIEVED 2 UNIT OF FFP. CURRENTLY ON HER SECOND UNIT OF PRBC. HGB 6 TODAY. INR 7.08. NO TEMPS THIS SHIFT. NO C/O PAIN. REG DIET. TAKES MEDS WHOLE ONE AT A TIME. HAD CT OF R) HIP/PELVIS DONE. XRAY OF R) HIP DONE. FOOT DROP BOOTS ON. TESTED POSTIVE FOR C-DIF. CONTACT ISO. Follow up:MONITOR BP, PULSE, AND HGB
[2017-06-20 18:32] LABS: HEMATOCRIT 22.7 % (33.0-46.0); HEMOGLOBIN 7.9 g/dL (10.0-15.0)
--- NOTE | 2017-06-21 04:51 | NUR ---
Significant Event: Patient alert to person and place. Is very drowsy and hard to arouse at times. Has 3+ edema in lower extremities. Bruising to R) hip/knee/ paras area. Incontinent of bladder and bowel. C diff, isolation precautions. Hgb 7.8 last evening. Saline running at 75 in R) wrist. SL to L) wrist. Denies pain. Takes pills 1 at a time with water. Regular diet. VSS. On 1L of O2 at night. Foot drop boots. Follow up:
[2017-06-21 05:18] LABS: BASOPHIL % 0.2 %; EOSINOPHIL # 0.2 K/uL (0.0-0.5); HEMATOCRIT 20.7 % (33.0-46.0); IMMATURE GRANULOCYTE # 0.2 K/uL (0.0-0.3); IMMATURE GRANULOCYTE % 1.4 %; LYMPHOCYTE # 1.6 K/uL (0.8-4.0); LYMPHOCYTE % 9.6 %; MCH 31.7 pg (27.0-34.0); MCHC 34.8 gm/dL (32.0-36.5); MCV 91.2 fl (83.0-98.0); MONOCYTE # 1.2 K/uL (0.0-1.0); MONOCYTE % 7.2 %; NEUTROPHIL # (ANC) 13.1 K/uL (1.8-7.8); NEUTROPHIL % 80.6 %; NRBC % 0.2 /100WBC (0-0.00); PLATELET COUNT 260 K/uL (150-450); RBC 2.27 M/uL (3.50-5.50); RDW-CV 17.6 % (11.9-14.6)
[2017-06-21 05:19] LABS: HEMOGLOBIN 7.2 g/dL (10.0-15.0); WBC 16.2 K/uL (4.0-11.0)
[2017-06-21 05:26] LABS: INR - (THERAPEUTIC) 1.08 (0.92-1.07); PROTIME 11.3 SECONDS (9.8-11.4)
[2017-06-21 05:33] LABS: CREATININE 0.8 mg/dL (0.5-1.1); POTASSIUM 3.5 mMol/L (3.7-5.1)
[2017-06-21 05:34] LABS: ANION GAP 8.5 (10.0-19.0)
[2017-06-21 05:35] LABS: CALCIUM 7.4 mg/dL (8.5-10.5); TOTAL PROTEIN 4.7 g/dL (6.0-8.4)
--- NOTE | 2017-06-21 15:59 | NUR ---
ULTRA HIGH FALL RISK Significant Event: A/O X1, sleepy, awakens easily - falls asleep during assessment, 2 assist-full lift, up to chair, PT/OT today, strict TTWB to RLE, BLE 3+ edema/tight, incontinent of bowel & bladder, loose BM x2, C.Diff Isolation. aloevesta to reddened perineal area, multiple ecchymotic areas, mepilex x2 to RLE, CSM intact to RLE, lungs Dim BLL, o2 1l/nc while sleeping. family @ bedside. turn q 2hr. bilat. foot drop boots. eating better today. saline lock L)FA, IVF to RFA. Follow up: accuchecks q6hr.
--- NOTE | 2017-06-22 04:23 | NUR ---
Significant Event: Patient is alert and oriented to person/place-forgetful at times. Denies N/T, CRUZ, or pain. PERRLA. Afebrile. VSS. SR-r) thready pulse in lower extremity. 3+ edema BLE and groin. 1L O2 per NC. Regular diet-last BM 06/22-active x4. Incont of B/B. 2A full lift- did stand with PT/strict TTWB RLE. Bilat foot drop boots. PIVs-L) FA-sl'd and R) FA infusing NS at 75 & Zosyn. Takes pills whole with water one at a time. Follow up: Plan is to go back to [place] when ready.
[2017-06-22 05:05] LABS: HEMATOCRIT 21.9 % (33.0-46.0)
[2017-06-22 05:06] LABS: HEMOGLOBIN 7.3 g/dL (10.0-15.0)
[2017-06-22 05:13] LABS: INR - (THERAPEUTIC) 1.02 (0.92-1.07); PROTIME 10.7 SECONDS (9.8-11.4)
[2017-06-22 05:19] LABS: CREATININE 0.7 mg/dL (0.5-1.1); MAGNESIUM 1.8 mg/dL (1.8-2.6); POTASSIUM 3.9 mMol/L (3.7-5.1)
[2017-06-22 05:20] LABS: ANION GAP 9.9 (10.0-19.0); PHOSPHORUS 1.8 mg/dL (2.5-4.9)
--- NOTE | 2017-06-22 10:08 | NUR ---
PT WORKED WITH PATIENT. PATIENT IS NOW IN CHAIR BY WAY OF LIFT. PATIENT HAD VOIDED AND HAD BOWEL MOVMENT AND IS NOW CLEANED UP AND RESTING.
--- NOTE | 2017-06-22 18:39 | NUR ---
PATIENT IS AAOX1. SHE WILL FOLLOW COMMANDS AND MOVE ALL EXTREMITIES. SHE IS VERY SLOW WITH HER MOVEMENTS AND VERY WEAK. SHE IS ON 1L OF O2. SHE WILL ONLY TAKE A FEW BITES OF FOOD. SHE DID TAKE HER PILLS TODAY BY MOUTH WITH HER TEA. TEA IS THE ONLY THING SHE REQUESTS. SHE HAS VOIDED THREE TIMES TODAY AND HAD 3 SMALL BOWEL MOVEMENTS. PT GOT HER UP IN THE CHAIR AND RN AND MAGISTRATE JUDGE PUT HER BACK TO BED 4 HOURS LATER. PERICARE HAS BEEN COMPLETED 3 TIMES.
--- NOTE | 2017-06-23 04:30 | NUR ---
Significant Event:PATIENT IS ALERT AND ORIENTED TO PERSON AND PLACE. FOLLOWS COMMANDS. PERRLA. LAST TEMP WAS 100.0. DENIES CRUZ, PAIN, OR N/T. IS FORGETFUL-DOESN'T REMEMBER THAT HER HAD WENT HOME FOR THE NIGHT. SR-THREADY PULSES- 3+ EDEMA. 1L OF O2 NC. REGULAR DIET-06/23 LAST BM-ACTIVE. ACCU CHECKS Q6H. INCONT OF B/B. 2A FULL LIFT/ STANDS WITH PT. MEPILEX X2 C/D/I TO R) HIP. SCATTERED BRUISING. PIV R) FA INFUSING NS AND ZOSYN. Follow up: [facility] WHEN READY.
[2017-06-23 05:10] LABS: HEMATOCRIT 22.9 % (33.0-46.0)
[2017-06-23 05:12] LABS: HEMOGLOBIN 7.5 g/dL (10.0-15.0)
[2017-06-23 05:17] LABS: INR - (THERAPEUTIC) 1.01 (0.92-1.07); PROTIME 10.6 SECONDS (9.8-11.4)
--- NOTE | 2017-06-23 11:05 | NUR ---
Faxed updates on patient to [facility].
--- NOTE | 2017-06-23 12:56 | NUR ---
A - NUTRITION F/U. A/O X 2. 7/30 LABS: NA+ 146, GLU 93, BUN/FIRE SAFETY MANAGER 8/0.7. WT IS UP 7# SINCE LAST REVIEW; BLE EDEMA INCREASED TO 3+. DIET: REGULAR W/ ENSURE BID. INTAKE USUALLY 50-75% BUT 0-25% YESTERDAY. D - AT RISK W/ INADEQUATE ORAL INTAKE AT TIMES R/T DECREASED APPETITE AEB INTAKE RECORD. I - GOAL: 50-75% INTAKE. M/E - WILL CONT TO OFFER ENSURE BID AND MONITOR INTAKE. F/U IN 3-5 DAYS.
--- NOTE | 2017-06-23 15:14 | NUR ---
Significant Event: Patient alert and oriented x3. Drowsy at times, but awakens easily. Forgetful. Pupils 3mm, brisk. Follows most commands. Weak throughout in extremities. VSS, on room air. 3+ edema to bilateral legs and paras area. Bruising noted to paras area and down R) leg to behind R) knee. Mepilex x2 to R) hip, intact. Incontinent of bladder and bowels, brief on. Does ask to use bed maldonado at times. Hyperactive bowel sounds noted. IV to R) FA infusing NS at 75 mL/hr. TTWB to R) leg. Contact isolation for c diff. Follow up:
--- NOTE | 2017-06-24 04:56 | NUR ---
Significant Event: A0X3, FORGETFUL AT TIMES. PUPILS 3MM/BRISK. VSS ON 1L 02. 3+ EDEMA TO LEGS BILAT AND MADALYN AREA. SCATTERED BRUISING NOTED TO MADALYN AREA AND DOWN R)LEG, BEHIND R)KNEE. MEPILEX X2 TO R)HIP. C/D/I. TTWB TO R)LEG. INCONTINENT OF BLADDER AND BOWEL. BM X2 THIS SHIFT. CONTACT ISOLATION FOR CDIFF. IV TO R)FA RUNNING NS AT 75ML/HR. Follow up:
[2017-06-24 06:48] LABS: HEMATOCRIT 22.3 % (33.0-46.0); HEMOGLOBIN 7.3 g/dL (10.0-15.0)
[2017-06-24 06:55] LABS: ANION GAP 10.2 (10.0-19.0); BLOOD UREA NITROGEN 7 mg/dL (6-24); CALCIUM 8.1 mg/dL (8.5-10.5); CHLORIDE 110 mMol/L (96-110); CO2 25 mMol/L (22-32); CREATININE 0.5 mg/dL (0.5-1.1); POTASSIUM 3.2 mMol/L (3.7-5.1); SODIUM 142 mMol/L (135-145)
[2017-06-24 10:21] LABS: INR - (THERAPEUTIC) 1.07 (0.92-1.07); PROTIME 11.2 SECONDS (9.8-11.4)
--- NOTE | 2017-06-24 16:52 | NUR ---
Significant Event: Patient alert to name and . Follows commands. Denies N/T. Patient stiff in all 4 extremities. Forgetful. Moves all extremities spontaneously. Bilateral foot drop boots. Sinus bradycardia. 2-3+ edema. Room air during the day. Sats high 90s. LS clear and diminished. Incontinent of bowel and bladder. Regular diet. CDIFF Isolations. Dressing to R) leg intact. PIV to R) FA infusing with no complications. Full lift. Reposition per protocol. Denies pain except when repositioning. Stood and pivoted with therapy. at bedside. Pleasant and coopertive with cares. Follow up:
[2017-06-25 05:49] LABS: BASOPHIL % 0.3 %; EOSINOPHIL # 0.3 K/uL (0.0-0.5); HEMATOCRIT 22.6 % (33.0-46.0); IMMATURE GRANULOCYTE # 0.2 K/uL (0.0-0.3); IMMATURE GRANULOCYTE % 1.6 %; LYMPHOCYTE # 1.4 K/uL (0.8-4.0); LYMPHOCYTE % 13.3 %; MONOCYTE # 1.1 K/uL (0.0-1.0); MPV 8.4 fl (9.4-12.4); NEUTROPHIL # (ANC) 7.8 K/uL (1.8-7.8); NEUTROPHIL % 71.8 %; NRBC % 0 /100WBC (0-0.00); RBC 2.33 M/uL (3.50-5.50); WBC 10.8 K/uL (4.0-11.0)
[2017-06-25 05:51] LABS: HEMOGLOBIN 7.4 g/dL (10.0-15.0); MCH 31.8 pg (27.0-34.0); MCHC 32.7 gm/dL (32.0-36.5); PLATELET COUNT 476 K/uL (150-450); RDW-CV 20.1 % (11.9-14.6)
--- NOTE | 2017-06-25 05:56 | NUR ---
Significant Event: Disoriented to time and forgetful otherwise a/ox2. Follows commands and unable to acquire for numbness or tingling. Contact isolation for C.diff. Continuous IV fluids running through R)forearm IV. Full lift for transfers. Mepilex dressings to right side of leg. Takes meds without difficulty 1 at a time. Follow up:
[2017-06-25 06:01] LABS: ANION GAP 11.9 (10.0-19.0); BLOOD UREA NITROGEN 7 mg/dL (6-24); CALCIUM 8.2 mg/dL (8.5-10.5); CHLORIDE 109 mMol/L (96-110); CO2 25 mMol/L (22-32); CREATININE 0.5 mg/dL (0.5-1.1); MAGNESIUM 1.7 mg/dL (1.8-2.6); POTASSIUM 3.9 mMol/L (3.7-5.1); SODIUM 142 mMol/L (135-145)
[2017-06-25 09:13] LABS: INR - (THERAPEUTIC) 1.1 (0.92-1.07); PROTIME 11.6 SECONDS (9.8-11.4)
--- NOTE | 2017-06-25 10:19 | NUR ---
0947 Faxed an update to [facility], let them know that according to note from , she would be ready to come back to them in 1-2 days. I asked them to review the information on the fax and then call me so we could talk about a van time for transport. Packet started, orders printed, no ID Screen needed as she is a return admission to [facility]. Plan return to [facility] on 06/26 if medically stable to transfer at that time. Will obtain a van time after I have talked with Nena at [facility] after they review the faxed information. CM to continue to follow and assist.
--- NOTE | 2017-06-25 14:49 | NUR ---
Significant Event: a/o to person. s/s of pain with repositioning. PRN tylenol for pain management. moves all extremities on command/spontaneously except for left lower extremity- no movement from knee down even with painful stimuli to foot. Edematous to sacral area and bilateral lower extremities. tele with NSR. incontinent of bowel and bladder. Bowel movement today was mushy/brown/slight form. IV with normal saline infusing at 75ml/hr. Mepilex dsgs to surgical sites to right hip C/D/I. Hip dislocation precautions. Full lift with transfers. Bilateral foot drop boots. Continues in contact isolation for Cdiff. Plan- transfer back to SNF tomorrow.
--- NOTE | 2017-06-26 02:27 | NUR ---
Significant Event: Alert to self and place. Forgetful at times. Call light appropriate. Able to follow commands. Left lower extremity has little to no movement due to prior injury. On tele SR. VSS. RA lungs clear. Inc of bowel and bladder. Regular diet. Able to take pills whole all at once without complications. Meplex drsg to R) hip C/D/I. IV to R) forearm running NS at 75ml/hr. Follow up: Return to [facility] today. Isolation for C-Diff.
[2017-06-26 05:55] LABS: ALBUMIN 2.1 gm/dL (3.5-5.0); ANION GAP 9.6 (10.0-19.0); CALCIUM 8.2 mg/dL (8.5-10.5); CREATININE 0.6 mg/dL (0.5-1.1); MAGNESIUM 1.7 mg/dL (1.8-2.6); PHOSPHORUS 2.2 mg/dL (2.5-4.9); POTASSIUM 3.6 mMol/L (3.7-5.1)
[2017-06-26 09:51] LABS: INR - (THERAPEUTIC) 1.09 (0.92-1.07); PROTIME 11.5 SECONDS (9.8-11.4)
--- NOTE | 2017-06-26 10:01 | NUR ---
Patient here for sepsis. Had recent rt hip surgery on 06/08. Patient is alert to self and place. Does follow commands. Pupils 4mm, brisk. Unable to really accurately tell me if she is having numbness/tingling. No movement to left leg from previous injury, otherwise generalized weakness. Lungs clear and dim, on room air. Last BM was 06/25. Toe touch weight bearing to rt leg, up with full lift. Iv in rt forearm, will be dc'd prior to transfer. Poor appetite so far today. Did c/o pain to rt leg but denied Tylenol. Mepilex dressing x 2 to rt leg. Alarms on for safety. Plan to transfer back to [facility] today.
--- NOTE | 2017-06-26 11:04 | NUR ---
0830 VM from Nena at [facility] stating that they prefer that Kenneth come back to them on PO Vanco instead of the liquid form if doctors can do this. I called her back at 0900 to let her know that I left a note on the chart and also talked with about making sure she was put on PO instead of liquid Vanco when she returned to [facility]. I also told her that we were still planning on having Kenneth come back to them today at 1245 via [place] Van. Nena confirms that we are still on for this time. Told her as soon as orders were done, I would get them faxed to her. RN to RN number is on the chart for MARCUS Rosales to call in report before Kenneth is dismissed. 1045 Talked with to remind him that we had a van time set up for 1245 today and orders were still needing to get done. He states he will get over to see her as soon as he can. CM to continue to follow and assist. and Kenneth aware of dismissal time and plan today.
== END 2017-06-26 14:30 | DRG 871 ==
LOC: GMED 07:58 → GICU 10:39
PROVIDERS: Emergency Medicine; Internal Medicine; Physician Assistant; ADMIT Family Medicine
PROC: 30233N1 Transfusion of Nonautologous Red Blood Cells into Peripheral Vein, Percutaneous Approach (ICD-10-PCS; principal; 2017-06-18)
DX: A41.9 Sepsis, unspecified organism (principal); G93.41 Metabolic encephalopathy; J96.01 Acute respiratory failure with hypoxia; R65.21 Severe sepsis with septic shock; N17.9 Acute kidney failure, unspecified; A04.7 Enterocolitis due to Clostridium difficile; E44.0 Moderate protein-calorie malnutrition; F03.90 Unspecified dementia, unspecified severity, without behavioral disturbance, psychotic disturbance, mood disturbance, and anxiety; I48.91 Unspecified atrial fibrillation; D62 Acute posthemorrhagic anemia; N39.0 Urinary tract infection, site not specified; E87.6 Hypokalemia; G40.909 Epilepsy, unspecified, not intractable, without status epilepticus; I10 Essential (primary) hypertension; Z66 Do not resuscitate; Z68.27 Body mass index [BMI] 27.0-27.9, adult
CPT/HCPCS: C9113; J0696; J1956; J2543; J3370; J7030; J7050; J7060; P9016; P9017; Q9967

== ENCOUNTER → 2017-06-18 | Outpatient (CLI) | payer MEDICARE, OTHER | END | disposition disaster alternative care site (69) | LOC: GAMB 07:38 | DX: I95.9 Hypotension, unspecified (principal); R41.82 Altered mental status, unspecified; Z79.01 Long term (current) use of anticoagulants; Z79.899 Other long term (current) drug therapy; Z88.6 Allergy status to analgesic agent | CPT/HCPCS: A0425; A0427 ==

== ENCOUNTER → 2017-07-21 | Outpatient (CLI) | payer MEDICARE, OTHER ==
[~2017-07-21] MED LIST changes: +COLACE100 MG PO; +CORDARONE,PACE200 MG PO; +DULCOLAX10 MG R; +KEPPRA500 MG PO; +LOVENOX 6060 MG/0.6 SUB-Q; +MILK OF MA400 MG/5 M PO; +NORCO 5-325 TA1 EACH PO; +NYSTATIN100000 UNI PO; +TYLENOL EXTRA500 MG PO
[2017-07-21 09:20] LABS: BILIRUBIN URINE NEGATIVE (NEGATIVE); BLOOD URINE 50 /UL (NEGATIVE); COLOR URINE YELLOW (YELLOW); GLUCOSE URINE NEGATIVE (NEGATIVE); KETONE URINE NEGATIVE (NEGATIVE); LEUKOCYTES URINE 500 /UL (NEGATIVE); NITRITE URINE NEGATIVE (NEGATIVE); PROTEIN URINE 100 mg/dL (NEGATIVE); SPEC GRAVITY URINE 1.015 (1.003-1.035); TURBIDITY URINE 4+ (CLEAR); UROBILINOGEN URINE NORMAL (NORMAL)
[2017-07-21 09:29] LABS: BACTERIA URINE FEW (NEGATIVE); EPITHELIAL URINE 0-2 #/HPF (NEGATIVE); RBC URINE 0-2 #/HPF (NEGATIVE); WBC URINE PACKED FIELD #/HPF (NEGATIVE)
== END ==
PROVIDERS: Family Medicine
DX: N39.0 Urinary tract infection, site not specified (principal)